=== PATIENT | female | born 1935 | race Caucasian/White ===

== ENCOUNTER 2024-02-23 10:38 | Inpatient (IN) | payer OTHER, MEDICARE, SELFPAY ==
[2024-02-23] VITALS (17 sets, daily range): BP systolic 112–137; BP diastolic 52–71; PULSE 44–59; RESP 12–30; TEMP 36.6–36.9; O2SAT 88–100; BMI 30.2
--- NOTE | 2024-02-23 10:55 | ED_ITS ---
HPI - Fall General Chief Complaint: Extremity Injury, Lower Stated Complaint: GLF Time Seen by Provider: 02/23/24 10:50 History of Present Illness HPI Narrative: Patient 88-year-old female history of hypertension on verapamil presents today with ground level fall and left hip pain. 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 She did not hit her head or lose consciousness. No chest pain or palpitations. She reports that she has not on antiplatelet or anticoagulation medication. Related Data Allergies Allergy/AdvReac Type Severity Reaction Status Date / Time No Known Drug Allergies Allergy Verified 02/23/24 11:16 Patient History Social History Smoking Status: Former smoker Exam Initial Vital Signs Initial Vital Signs: Vital Signs Pulse Rate 48 L 02/23/24 10:48 Respiratory Rate 27 H 02/23/24 10:48 Pulse Oximetry 99 02/23/24 10:48 GENERAL: Alert pleasant 88-year-old female and in no acute distress. HEENT: Head atraumatic,EOMI, pupils reactive, face symmetric, moist mucous membranes CARDIOVASCULAR: Regular rate and rhythm without murmurs, rubs or gallops. RESPIRATORY: Breath sounds equal bilaterally, no wheezes rales or rhonchi. ABDOMEN: Soft, nontender. Normoactive bowel sounds all 4 quadrants. No guarding or rebound.s EXTREMITIES: Normal range of motion, no clubbing or edema. Neurovascularly intact Left leg externally rotated and shortened distal pedal pulse intact tender with internal external rotation of hip no iliac crest pain NEUROLOGICAL: Alert and oriented x4. SKIN: Warm, dry, no laceration, no petechiae, no rashes or lesions. Course Orders Ordered: ED Orders 02/23/24 10:42 CBC Auto Diff [Complete Blood Count AUTO DIFF] Stat CMP [Comprehensive Metabolic Panel] Stat 02/23/24 10:58 XR hip w pel if done LT 2V Stat 02/23/24 12:49 CT pelvis wo con Stat 02/23/24 13:42 Consult to Physician Stat Morphine Sulfate (Morphine 2 Mg/Ml Inj) 2 mg IV Q4HR PRN PRN Reason: Pain, Moderate (4-6) Ondansetron HCl (Ondansetron 4 Mg/2 Ml Inj) 4 mg IV Q4HR PRN PRN Reason: Nausea And Vomiting Discontinued Medications Morphine Sulfate (Morphine 2 Mg/Ml Inj) 2 mg IV NOW ONE Stop: 02/23/24 11:01 Last Admin: 02/23/24 11:10 Dose: 2 mg Documented By: JOSSY Vital Signs Vital signs: Vital Signs - 8 hr 02/23/24 10:48 02/23/24 10:59 02/23/24 11:00 Temperature 98.0 F Pulse Rate 48 L 47 L 48 L Respiratory Rate 27 H 18 25 H Blood Pressure 137/67 Pulse Oximetry 99 97 100 Oxygen Delivery Method Room Air 02/23/24 11:01 02/23/24 11:01 02/23/24 11:39 Temperature Pulse Rate 48 L 46 L Respiratory Rate Blood Pressure 135/62 Pulse Oximetry 100 100 Oxygen Delivery Method 02/23/24 11:59 02/23/24 11:59 02/23/24 12:00 Temperature Pulse Rate 46 L 44 L Respiratory Rate 24 27 H Blood Pressure 132/57 L Pulse Oximetry 97 94 Oxygen Delivery Method 02/23/24 12:01 02/23/24 12:01 02/23/24 12:30 Temperature Pulse Rate 44 L 49 L Respiratory Rate 24 23 Blood Pressure 125/59 L Pulse Oximetry 94 98 Oxygen Delivery Method 02/23/24 12:31 02/23/24 12:31 02/23/24 13:00 Temperature Pulse Rate 50 L Respiratory Rate 24 Blood Pressure 116/67 126/61 Pulse Oximetry 99 Oxygen Delivery Method 02/23/24 13:00 02/23/24 13:22 02/23/24 13:22 Temperature Pulse Rate 51 L 48 L Respiratory Rate 30 H 26 H Blood Pressure 127/71 Pulse Oximetry 99 100 Oxygen Delivery Method 02/23/24 13:30 02/23/24 13:30 Temperature Pulse Rate 45 L Respiratory Rate 21 Blood Pressure 117/55 L Pulse Oximetry 95 Oxygen Delivery Method Room Air MDM - Fall Lab Data 02/23/24 10:42 02/23/24 10:42 Labs: Lab Results 02/23/24 Range/Units 10:42 WBC 7.9 (4.5-11.0) X10^3/uL RBC 5.17 (4.0-5.2) X10^6/uL Hgb 16.0 (12.0-16.0) g/dL Hct 46.5 H (36-46) % MCV 89.9 (80-100) fL MCH 31.0 (26-34) PG MCHC 34.4 (30-36) % RDW 13.2 (11.6-14.8) % Plt Count 268 (150-400) X10^3/uL Neut % (Auto) 62.5 (50-75) % Lymph % (Auto) 27.7 (25-40) % [place] % (Auto) 7.7 (3-14) % Eos % (Auto) 1.3 L (2-4) % Baso % (Auto) 0.8 (0-2) % Neut # (Auto) 5000 (1728-8240) /uL Lymph # (Auto) 2200 (1178-4552) /uL [place] # (Auto) 600 (0-900) /uL Eos # (Auto) 100 (0-450) /uL Baso # (Auto) 100 (0-100) /uL Sodium 142 (137-145) mmol/L Potassium 4.0 (3.4-5.1) mmol/L Chloride 108 H (98-107) mmol/L Carbon Dioxide 29 (22-32) mmol/L BUN 15 (7-17) mg/dL Creatinine 0.58 (0.52-1.04) mg/dL Estimated GFR > 60 (>60) mL/min BUN/Creatinine Ratio 25.9 H (6-22) Glucose 112 H (80-110) mg/dL Calcium 9.3 (8.4-10.2) mg/dL Total Bilirubin 0.8 (0.2-1.3) mg/dL AST 25 (14-36) IU/L ALT 14 (<35) IU/L Alkaline Phosphatase 70 (38-126) U/L Total Protein 7.5 (6.3-8.2) g/dL Albumin 4.3 (3.5-5.0) g/dL Globulin 3.2 (1.7-4.1) g/dL Albumin/Globulin Ratio 1.3 (1.0-2.8) Imaging Data Extremity x-ray #1: My Impression: Femoral neck fracture Radiologist's Impression: PROCEDURE: XR HIP W PEL IF DONE LT 2V INDICATIONS: fall TECHNIQUE: 2 views of the hip were acquired. COMPARISON: None. FINDINGS: Bones: Possible fracture through the left femoral neck is largely obscured by patient positioning. Pelvic ring is intact. Total right hip prosthesis in good position. Soft tissues: Barium within the right and transverse colon. No obstruction IMPRESSION: Possible left femoral neck fracture. Consider follow-up CT Retained enteric contrast in the colon Approved by: Kamran Waite M.D. on 02/23/2024 at 11:45 CT Pelvis: Radiologist's Impression: PROCEDURE: CT PEL WO CON INDICATIONS: left hip fracture TECHNIQUE: Noncontrast 3 mm axial sections acquired through the bony pelvis, with coronal and sagittal reformatting. COMPARISON: None. FINDINGS: Image quality: Excellent. Bones: Subcapital femoral neck fracture noted in the left. Total right hip prosthesis on the right. Pelvic ring intact. Incidental lower lumbar spine degenerative disc disease and arthropathy. Soft tissues: Normal appearing appendix. Retained enteric contrast in the right colon. Paredes catheter in the bladder. Multiple diverticula arise from the colon without diverticulitis. IMPRESSION: Basicervical left femoral neck fracture with angulation Chronic changes as above MDM Narrative Medical decision making narrative: Patient 88-year-old female without significant past medical history presenting today with mechanical fall. Having significant left hip pain. On exam she is externally rotated and shortened neurovascularly intact. Imaging was reviewed a radiology read x-ray as questionable femoral neck fracture. Encourage CT CT confirms femoral neck fracture Blood work has been reviewed: No significant abnormalities no leukocytosis anemia or DWAINE Patient has received doses of morphine for pain which have helped. Paredes catheter has been placed. Patient is visiting out of town for 1 of her cousins parties. She is staying at a hotel she needs draft roller picker her car. She has family nearby but has yet to called them. When asked about the retained contrast on her x-ray she had some sort of gastric surgery at [facility] and had recent studies done yesterday or earlier this week. She says it is not any sort of cancer. Dr. Murphy updated on patient's symptoms test results agrees patient to go to medicine and to keep NPO for surgery tomorrow Dr. Molina accepts patient Discharge Plan Departure Patient Disposition: Admitted As Inpatient Clinical Impression: Fracture of hip Admit Date/Time: 02/23/24 13:43 Admit Provider: Phu Molina
--- NOTE | 2024-02-23 10:58 | DI.RAD.S_ITS ---
PROCEDURE: XR HIP W PEL IF DONE LT 2V INDICATIONS: fall TECHNIQUE: 2 views of the hip were acquired. COMPARISON: None. FINDINGS: Bones: Possible fracture through the left femoral neck is largely obscured by patient positioning. Pelvic ring is intact. Total right hip prosthesis in good position. Soft tissues: Barium within the right and transverse colon. No obstruction IMPRESSION: Possible left femoral neck fracture. Consider follow-up CT Retained enteric contrast in the colon Approved by: Kamran Waite M.D. on 02/23/2024 at 11:45
--- NOTE | 2024-02-23 11:07 | PC.NURSE ---
Pt states she was at a restraunt when she tripped and fell. Pt reports left hip pain that is worse on movement. Pt reports no pain w/ no movement; w/ movement pt reports a pain of 6
--- NOTE | 2024-02-23 11:08 | PC.NURSE ---
No bruising to hip noted.
[2024-02-23] MEDS: MORPHINE 2 MG/ML INJ IV (11:10)
[2024-02-23 11:13] LABS: Add Manual Diff / Slide Review NO; Basophils Absolute Auto 100 /uL (0-100); Basophils Percent Auto 0.8 % (0-2); Eosinophils Absolute Auto 100 /uL (0-450); Eosinophils Percent Auto 1.3 % (2-4); Hematocrit 46.5 % (36-46); Lymphocytes Absolute Auto 2200 /uL (1100-4500); Lymphocytes Percent Auto 27.7 % (25-40); Mean Corpuscular HGB Conc 34.4 % (30-36); Mean Corpuscular Volume 89.9 fL (80-100); Monocytes Absolute Auto 600 /uL (0-900); Monocytes Percent Auto 7.7 % (3-14); Neutrophils Absolute Auto 5000 /uL (1500-7000); Neutrophils Percent Auto 62.5 % (50-75); Platelet Count 268 X10^3/uL (150-400); Red Blood Cell Count 5.17 X10^6/uL (4.0-5.2); Red Cell Distribution Width 13.2 % (11.6-14.8); White Blood Cell Count 7.9 X10^3/uL (4.5-11.0)
[2024-02-23 11:19] LABS: Alanine Aminotransferase 14 IU/L (<35); Albumin 4.3 g/dL (3.5-5.0); Albumin Globulin Ratio 1.3 (1.0-2.8); Alkaline Phosphatase 70 U/L (38-126); Aspartate Aminotransferase 25 IU/L (14-36); BUN Creatinine Ratio 25.9 (6-22); Bilirubin Total 0.8 mg/dL (0.2-1.3); Blood Urea Nitrogen 15 mg/dL (7-17); Calcium 9.3 mg/dL (8.4-10.2); Carbon Dioxide 29 mmol/L (22-32); Chloride 108 mmol/L (98-107); Estimated Glomerular Filt Rate > 60 mL/min (>60); Globulin 3.2 g/dL (1.7-4.1); Glucose 112 mg/dL (80-110); HEMOLYSIS < 15 (0-50); Sodium 142 mmol/L (137-145); Total Protein 7.5 g/dL (6.3-8.2)
--- NOTE | 2024-02-23 12:49 | DI.CT.S_ITS ---
PROCEDURE: CT PEL WO CON INDICATIONS: left hip fracture TECHNIQUE: Noncontrast 3 mm axial sections acquired through the bony pelvis, with coronal and sagittal reformatting. COMPARISON: None. FINDINGS: Image quality: Excellent. Bones: Subcapital femoral neck fracture noted in the left. Total right hip prosthesis on the right. Pelvic ring intact. Incidental lower lumbar spine degenerative disc disease and arthropathy. Soft tissues: Normal appearing appendix. Retained enteric contrast in the right colon. Paredes catheter in the bladder. Multiple diverticula arise from the colon without diverticulitis. IMPRESSION: Basicervical left femoral neck fracture with angulation Chronic changes as above Approved by: Kamran Waite M.D. on 02/23/2024 at 13:02
--- NOTE | 2024-02-23 14:10 | PM.HP.1 ---
History of Present Illness History of Present Illness Date Patient Seen: 02/23/24 Chief complaint: GLF Narrative: The patient is an 88-year-old female with history of hypertension who presented with left hip patent following a ground level fall. The patient was from out of town and is visiting from [facility]. She slipped on a floor landing resulting in our injury. She denies any other injuries. CT scan confirmed a hip fracture, Orthopedics was consulted and we will do an operative repair on February 23. She denies other injuries during her fall. There is no syncopal component. She is in town for a surprise birthday alliance party for her family member. The patient has enjoyed good health other than hypertension for which he takes 1 blood pressure pill. She is full resuscitation, confirmed today. She denies any chest pain history either at rest or with exertion. She also denies any exertional dyspnea, leg edema or orthopnea. [facility] Social History household members: none Smoking Status: Former smoker alcohol intake: current Meds Home Medications and Allergies Home Medications Medication Instructions Recorded Confirmed Type verapamil 240 mg tablet,extended 240 mg PO DAILY 02/23/24 02/23/24 History release Allergies Allergy/AdvReac Type Severity Reaction Status Date / Time No Known Drug Allergies Allergy Verified 02/23/24 11:16 Review of Systems Review of Systems Narrative: All else reviewed and otherwise unremarkable except as noted in the history and physical. Exam Vital Signs (past 8 hours): - 02/23/24 10:48 02/23/24 10:59 02/23/24 11:00 Temperature 98.0 F Pulse Rate 48 L 47 L 48 L Respiratory Rate 27 H 18 25 H Blood Pressure 137/67 Pulse Oximetry 99 97 100 Oxygen Delivery Method Room Air 02/23/24 11:01 02/23/24 11:01 02/23/24 11:39 Temperature Pulse Rate 48 L 46 L Respiratory Rate Blood Pressure 135/62 Pulse Oximetry 100 100 Oxygen Delivery Method 02/23/24 11:59 02/23/24 11:59 02/23/24 12:00 Temperature Pulse Rate 46 L 44 L Respiratory Rate 24 27 H Blood Pressure 132/57 L Pulse Oximetry 97 94 Oxygen Delivery Method 02/23/24 12:01 02/23/24 12:01 02/23/24 12:30 Temperature Pulse Rate 44 L 49 L Respiratory Rate 24 23 Blood Pressure 125/59 L Pulse Oximetry 94 98 Oxygen Delivery Method 02/23/24 12:31 02/23/24 12:31 02/23/24 13:00 Temperature Pulse Rate 50 L Respiratory Rate 24 Blood Pressure 116/67 126/61 Pulse Oximetry 99 Oxygen Delivery Method 02/23/24 13:00 02/23/24 13:22 02/23/24 13:22 Temperature Pulse Rate 51 L 48 L Respiratory Rate 30 H 26 H Blood Pressure 127/71 Pulse Oximetry 99 100 Oxygen Delivery Method 02/23/24 13:30 02/23/24 13:30 02/23/24 13:45 Temperature Pulse Rate 45 L 46 L Respiratory Rate 21 14 Blood Pressure 117/55 L Pulse Oximetry 95 88 L Oxygen Delivery Method Room Air Room Air Oxygen Delivery Method Room Air Narrative Exam Narrative: NAD, alert and oriented, fluent speech, calm. Normocephalic skull, EOMI, anicteric sclera, symmetric pupils. Oropharynx unremarkable, no droop. Neck supple, midline trachea, no adenopathy. Lungs clear, normal rate and effort. Heart regular, no murmur gallop or rub. Abdomen is soft, non distended and non tender. Extremities are free of edema. Skin is free of rash or lesions. Joints are not swollen or deformed. Judgment appears to be normal. The left lower extremity is externally rotated. Good peripheral pulses in both feet. Objective Imaging CT Hip: Radiologist's impression: Basicervical left femoral neck fracture with angulation Chronic changes as above Labs 02/23/24 10:42 02/23/24 10:42 Labs: Laboratory Results - last 24 hr 02/23/24 10:42 WBC 7.9 RBC 5.17 Hgb 16.0 Hct 46.5 H MCV 89.9 MCH 31.0 MCHC 34.4 RDW 13.2 Plt Count 268 Neut % (Auto) 62.5 Lymph % (Auto) 27.7 [place] % (Auto) 7.7 Eos % (Auto) 1.3 L Baso % (Auto) 0.8 Neut # (Auto) 5000 Lymph # (Auto) 2200 [place] # (Auto) 600 Eos # (Auto) 100 Baso # (Auto) 100 Sodium 142 Potassium 4.0 Chloride 108 H Carbon Dioxide 29 BUN 15 Creatinine 0.58 Estimated GFR > 60 BUN/Creatinine Ratio 25.9 H Glucose 112 H Calcium 9.3 Total Bilirubin 0.8 AST 25 ALT 14 Alkaline Phosphatase 70 Total Protein 7.5 Albumin 4.3 Globulin 3.2 Albumin/Globulin Ratio 1.3 Assessment & Plan Assessment & Plan narrative: 1. Left femoral neck fracture, present on admission and active. 2. Ground level fall, mechanical. Present on admission and active. 3. Chronic essential hypertension, present on admission and stable. Plan: -continue usual blood pressure medications. -pain control. -bed rest. -DVT prophylaxis. -orthopedics consultation for operative repair of hip fracture. Time Spent With Patient Time with patient: 30 to 49 minutes with 50% spent counseling/coordinating care Quality MIPS - Admit I confirm the patient?s Advance Care Plan is present, Code status is documented, Surrogate decision maker is in patient?s record [If Yes, STOP here]: Yes MIPS - Meds 'Current medications' to include all prescriptions, [id number] products, herbals, cannabis/cannabidiol products, and vitamin/mineral/dietary (nutritional) supplements. I have utilized all available resources to obtain, update, or review the patient?s current medications. [If Yes, STOP here]: Yes
--- NOTE | 2024-02-23 14:29 | P.CONS_ITS ---
History of Present Illness Consult details Date Patient Seen: 02/23/24 Time Patient Seen: 17:28 Chief complaint: GLF Reason for consult: left hip fracture Requesting provider: Leia Duarte Narrative: 88 yo F visiting from [place] fell while out at breakfast onto L side and was unable to ambulate. brought to and found to have communited displaced left femoral neck fracture. she was indicated for inpt admission to the medicine service and optimization for orthopedic surgery. she does not take blood thinners, and have a hx of a right FRANCHESKA. 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 She lives independently and is generally in good health. She takes 1 standard medication for hypertension which is verapamil. She did recently have a stomach surgery at [facility] and completed the postoperative 1 month liquid diet recently. She just had her 3rd and final follow up at [facility] yesterday where she had a barium swallow which you can still see evidence of on the ER x-rays today. At that point she was cleared to resume her regular diet. She does not have any history of blood clots and takes no blood thinners she has a history of a previous right total hip replacement also performed at [facility]. Her PCP works in [place] [address] after moving their from [place] and she has been seeing him in [address] for several years with the patient continues to live in [place]. The patient was in the area today for a cousin's surprise 82th birthday alliance party. The patient was at a restaurant in [facility] being guided to a seat for breakfast when she tripped moving between the rooms and fell onto her left hip. She denies any loss of consciousness or other injury. There were some relay tester helper at breakfast that were able to get her up. She was unable to bear weight on her left leg had hip pain and EMS was called She endorses pain in her left hip. She denies any loss of consciousness. She does state on the right side she has some nerve pain pins and needles that occurred coinciding with her right total hip replacement which was done for osteoarthritis Meds Home Medications and Allergies Home Medications Medication Instructions Recorded Confirmed Type verapamil 240 mg tablet,extended 240 mg PO DAILY 02/23/24 02/23/24 History release Allergies Allergy/AdvReac Type Severity Reaction Status Date / Time No Known Drug Allergies Allergy Verified 02/23/24 11:16 Review of Systems Review of Systems Narrative: Endorses left hip pain. Has some numbness and tingling that is chronic in her left lower extremity. ROS: Yes All systems reviewed with the patient and are negative except as otherwise documented Exam Vital Signs (past 8 hours): - 02/23/24 10:48 02/23/24 10:59 02/23/24 11:00 Temperature 98.0 F Pulse Rate 48 L 47 L 48 L Respiratory Rate 27 H 18 25 H Blood Pressure 137/67 Pulse Oximetry 99 97 100 Oxygen Delivery Method Room Air 02/23/24 11:01 02/23/24 11:01 02/23/24 11:39 Temperature Pulse Rate 48 L 46 L Respiratory Rate Blood Pressure 135/62 Pulse Oximetry 100 100 Oxygen Delivery Method 02/23/24 11:59 02/23/24 11:59 02/23/24 12:00 Temperature Pulse Rate 46 L 44 L Respiratory Rate 24 27 H Blood Pressure 132/57 L Pulse Oximetry 97 94 Oxygen Delivery Method 02/23/24 12:01 02/23/24 12:01 02/23/24 12:30 Temperature Pulse Rate 44 L 49 L Respiratory Rate 24 23 Blood Pressure 125/59 L Pulse Oximetry 94 98 Oxygen Delivery Method 02/23/24 12:31 02/23/24 12:31 02/23/24 13:00 Temperature Pulse Rate 50 L Respiratory Rate 24 Blood Pressure 116/67 126/61 Pulse Oximetry 99 Oxygen Delivery Method 02/23/24 13:00 02/23/24 13:22 02/23/24 13:22 Temperature Pulse Rate 51 L 48 L Respiratory Rate 30 H 26 H Blood Pressure 127/71 Pulse Oximetry 99 100 Oxygen Delivery Method 02/23/24 13:30 02/23/24 13:30 02/23/24 13:45 Temperature Pulse Rate 45 L 46 L Respiratory Rate 21 14 Blood Pressure 117/55 L Pulse Oximetry 95 88 L Oxygen Delivery Method Room Air Room Air 02/23/24 14:00 02/23/24 14:00 Temperature 98.5 F Pulse Rate 48 L Respiratory Rate 12 Blood Pressure 112/56 L Pulse Oximetry 100 Oxygen Delivery Method Oxygen Delivery Method Room Air Narrative Exam Narrative: Alert and oriented female in no acute distress very articulate. HEENT exam normocephalic atraumatic. Moving bilateral upper extremities without limitation. Respiratory clear to auscultation bilaterally. Heart regular rhythm slightly bradycardic Lying in bed. Paredes in place. Yellow urine. Right lower extremity moves normally. Demonstrates dorsiflexion plantar flexion. There is some numbness and tingling superficial peroneal nerve distribution. EHL intact. Palpable pulses. Normal alignment Left lower extremity demonstrates a shortened and external rotation deformity of the lower extremity consistent with the known displaced femoral neck fracture. Patient is able to wiggle her toes and demonstrate dorsiflexion of the ankle. Palpable dorsalis pedis pulse. Calf is soft. Knee is benign. Tenderness to palpation around the left hip. Additional motor exam of the left lower extremity deferred due to known fracture. Objective Imaging left hip xr: My impression: ap and Left lateral hip with shortened appearance Left hip, consistent with femoral neck neck, Right FRANCHESKA. bowel contrast opacity pelvis CT: My impression: comminuted left femoral neck fracture Labs 02/23/24 10:42 02/23/24 10:42 Labs: Laboratory Results - last 24 hr 02/23/24 10:42 WBC 7.9 RBC 5.17 Hgb 16.0 Hct 46.5 H MCV 89.9 MCH 31.0 MCHC 34.4 RDW 13.2 Plt Count 268 Neut % (Auto) 62.5 Lymph % (Auto) 27.7 [place] % (Auto) 7.7 Eos % (Auto) 1.3 L Baso % (Auto) 0.8 Neut # (Auto) 5000 Lymph # (Auto) 2200 [place] # (Auto) 600 Eos # (Auto) 100 Baso # (Auto) 100 Sodium 142 Potassium 4.0 Chloride 108 H Carbon Dioxide 29 BUN 15 Creatinine 0.58 Estimated GFR > 60 BUN/Creatinine Ratio 25.9 H Glucose 112 H Calcium 9.3 Total Bilirubin 0.8 AST 25 ALT 14 Alkaline Phosphatase 70 Total Protein 7.5 Albumin 4.3 Globulin 3.2 Albumin/Globulin Ratio 1.3 PFSH Social History marital status: occupational status: employed 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 Tobacco & Substance Use Smoking Status: Former smoker Additional Social History additional social history: Lives independently in [place] Assessment & Plan Assessment and plan (1) Fracture of femoral neck, left: Qualifiers: Encounter type: initial encounter Fracture type: closed Qualified Code(s): S72.002A - Fracture of unspecified part of neck of left femur, initial encounter for closed fracture Status: Acute (2) Osteoporotic hip fracture: Qualifiers: Encounter type: initial encounter Laterality: left Qualified Code(s): M80.052A - Age-related osteoporosis with current pathological fracture, left femur, initial encounter for fracture Status: Acute Plan left osteoporotic hip fracture from GLF. -displaced comminuted femoral neck fracture. These fractures have a poor healing potential, therefore the recommendation is hemiarthroplasty which will allow immediate WB. Fixation or replacement for hip fractures as appropriate at an early interval improves morbidity and mortality compared to non operative treatment. We will plan plan for tomorrow AM OR. NPO MN. The patient denies prodrome pain. Lives independently. And has been indicated for a hemiarthroplasty for her displaced left femoral neck fracture. The risks and benefits of the procedure have been discussed with the patient and given the opportunity to ask questions. The risks of surgery include but are not limited to infection, dislocation, blood loss, persistence of pain, damage to nerves and blood vessels, posttraumatic arthritis, DVT, PE, cardiopulmonary complications and . The patient expressed a thorough understanding of the risks and benefits of surgery and has elected to proceed. Consent was signed today. We discussed the alternatives to surgery his non operative treatment which would be bedridden status and is not recommended due to prolonged dysfunction and high morbidity and mortality. We discussed recovery after hip arthroplasty for fracture can be slower and more difficult than elective total hip procedures. She will work with physical therapy after surgery and may require assistance with placement. She will be on posterior hip precautions x6 weeks after the procedure. She will be able to resume her regular diet. We will initiate Lovenox DVT prophylaxis after surgery while in the hospital. If she mobilizes well can be discharged with aspirin 80 mg b.i.d. If she has difficulty with mobilization then would continue the Lovenox prescription through 35 days postop. Preoperatively she is on heparin subcutaneous. We will hold the morning dose prior to surgery. We discussed risks of blood loss with surgery. We will use tranexamic acid to limit blood loss. If she has symptomatic blood loss anemia postoperative, we also discussed possibility of a transfusion, but this is not often required. High-level medical decision making. Decision for major orthopedic surgery and inpatient hospitalization. Patient was social factors that will impact discharge. Lives alone out of town. We will require care management assistance. X-rays and CT scan reviewed. Time Spent With Patient Time with patient: 50 to 69 minutes with 50% spent counseling/coordinating care
[2024-02-23] MEDS: SODIUM CHLORIDE 0.9% 1,000 ML 75 ML IV (15:15)
[2024-02-23] MEDS: OXYCODONE IR 5 MG TABLET PO (17:26)
[2024-02-23] MEDS: DOCUSATE 100 MG CAPSULE PO (20:30)
[2024-02-23] MEDS: HEPARIN 5,000 UNIT/ML VIAL 5000 UNIT SUBCUT (23:20)
[2024-02-24] VITALS (15 sets, daily range): BP systolic 105–129; BP diastolic 47–64; PULSE 55–75; RESP 14–18; TEMP 36.1–36.9; O2SAT 92–98; BMI 30.2
[2024-02-24] MEDS: SODIUM CHLORIDE 0.9% 1,000 ML 75 ML IV (04:08)
[2024-02-24 05:11] LABS: Add Manual Diff / Slide Review NO; Basophils Absolute Auto 0 /uL (0-100); Basophils Percent Auto 0.6 % (0-2); Eosinophils Absolute Auto 100 /uL (0-450); Eosinophils Percent Auto 2.2 % (2-4); Hematocrit 39.1 % (36-46); Hemoglobin 13.4 g/dL (12.0-16.0); Lymphocytes Absolute Auto 1100 /uL (1100-4500); Lymphocytes Percent Auto 17.2 % (25-40); Mean Corpuscular HGB Conc 34.1 % (30-36); Mean Corpuscular Hemoglobin 30.5 PG (26-34); Mean Corpuscular Volume 89.3 fL (80-100); Monocytes Absolute Auto 600 /uL (0-900); Monocytes Percent Auto 10.1 % (3-14); Neutrophils Absolute Auto 4500 /uL (1500-7000); Neutrophils Percent Auto 69.9 % (50-75); Platelet Count 174 X10^3/uL (150-400); Red Blood Cell Count 4.38 X10^6/uL (4.0-5.2); Red Cell Distribution Width 12.7 % (11.6-14.8); White Blood Cell Count 6.4 X10^3/uL (4.5-11.0)
[2024-02-24 05:30] LABS: BUN Creatinine Ratio 27.3 (6-22); Blood Urea Nitrogen 12 mg/dL (7-17); Carbon Dioxide 26 mmol/L (22-32); Chloride 110 mmol/L (98-107); Estimated Glomerular Filt Rate > 60 mL/min (>60); Glucose 105 mg/dL (80-110); HEMOLYSIS < 15 (0-50); Potassium 3.5 mmol/L (3.4-5.1); Sodium 136 mmol/L (137-145)
--- NOTE | 2024-02-24 07:08 | P.PN_ITS ---
Subjective Subjective Interval history: Doing well after surgery, minimal left hip pain. No chest pain or dyspnea. Exam Vital Signs (past 8 hours): - 02/24/24 04:09 Temperature 97.5 F L Pulse Rate 55 L Respiratory Rate 16 Blood Pressure 105/55 L Pulse Oximetry 95 Oxygen Flow Rate 0 Oxygen Delivery Method Room Air Oxygen Flow Rate 0 Narrative Exam Narrative: NAD, alert and oriented. Fluent speech. Lungs are clear, normal rate and effort. Heart is regular, no murmur gallop or rub. Abdomen is soft, non distended. Extremities are free of edema. Good symmetric pedal pulses. Objective Labs 02/24/24 05:02 02/24/24 05:02 Labs: Laboratory Results - last 24 hr 02/23/24 02/24/24 10:42 05:02 WBC 7.9 6.4 RBC 5.17 4.38 Hgb 16.0 13.4 Hct 46.5 H 39.1 MCV 89.9 89.3 MCH 31.0 30.5 MCHC 34.4 34.1 RDW 13.2 12.7 Plt Count 268 174 Neut % (Auto) 62.5 69.9 Lymph % (Auto) 27.7 17.2 L [place] % (Auto) 7.7 10.1 Eos % (Auto) 1.3 L 2.2 Baso % (Auto) 0.8 0.6 Neut # (Auto) 5000 4500 Lymph # (Auto) 2200 1100 [place] # (Auto) 600 600 Eos # (Auto) 100 100 Baso # (Auto) 100 0 Sodium 142 136 L Potassium 4.0 3.5 Chloride 108 H 110 H Carbon Dioxide 29 26 BUN 15 12 Creatinine 0.58 0.44 L Estimated GFR > 60 > 60 BUN/Creatinine Ratio 25.9 H 27.3 H Glucose 112 H 105 Calcium 9.3 8.0 L Total Bilirubin 0.8 AST 25 ALT 14 Alkaline Phosphatase 70 Total Protein 7.5 Albumin 4.3 Globulin 3.2 Albumin/Globulin Ratio 1.3 [facility] Social History marital status: household members: none occupational status: employed 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 Smoking Status: Former smoker alcohol intake: current additional social history: Lives independently in [place] Assessment & Plan Assessment & Plan narrative: 1. Left femoral neck fracture status postoperative repair on February 23, present on admission and active. 2. Ground level fall, mechanical. Present on admission and active. 3. Chronic essential hypertension, present on admission and stable. Plan: -continue usual blood pressure medications. -pain control. -advance activity -DVT prophylaxis. Full code. She lives alone in [place]. She was recently . Quality VTE Deep Vein Thrombosis/Pulmonary Embolism Present on Admission: No
--- NOTE | 2024-02-24 07:52 | DI.RAD.S_ITS ---
PROCEDURE: XR HIP W PEL IF DONE LT 2V INDICATIONS: intraop TECHNIQUE: Single intraoperative image of the lower pelvis was obtained COMPARISON: [facility], CR, XR HIP W PEL IF DONE LT 2V, 02/23/2024, 11:24. FINDINGS: Single intraoperative image shows right hip revision and left hip arthroplasty in progress. IMPRESSION: 1. Total left hip and right hip revision arthroplasty in progress Approved by: Kamran Waite M.D. on 02/24/2024 at 10:11
--- NOTE | 2024-02-24 08:01 | PM.PREOP ---
Pre-operative Note Interval Note History & Physical reviewed/Exam performed by Physician: Yes Changes to H&P: No
--- NOTE | 2024-02-24 08:02 | PM.OP.1 ---
Operative Date/Time/Diagnoses Date of procedure: 02/24/24 Time of procedure: 09:00 Pre-op diagnosis: Left osteoporotic hip fracture, left femoral neck fracture Post-op diagnosis: same Procedure & Clinicians Procedure: Left hip hemiarthroplasty, cemented cpt 55332 Same procedure as scheduled: Yes Indications: The patient is an pleasant independent living 88-year-old female visiting from [place] that had a ground level fall in a restaurant in [facility] and sustained a displaced left femoral neck fracture. She was indicated for operative fixation with a cemented hemiarthroplasty of her left hip to facilitate early ambulation and mobilization and reduce the risks of prolonged immobility. The risks and benefits of the procedure have been discussed with the patient and given the opportunity to ask questions. The risks of surgery include but are not limited to infection, fracture dislocation,, persistence of pain, damage to nerves and blood vessels, posttraumatic arthritis, DVT, PE, cardiopulmonary complications and . The patient expressed a thorough understanding of the risks and benefits of surgery and has elected to proceed. Consent was signed. Surgeon: Geno Bowman Transitional Studies Instructor: Juan J Urrutia Anesthesia Type: General, Spinal and Local Operative Notes Findings: Displaced comminuted left femoral neck fracture Closure Type: primary Specimen(s): none sent Prosthetic devices, grafts, tissues, transplants, or devices: [employer]ullen [employer] Synergy stem, cemented size 11 Tandem unipolar head size 45 Neck +4 9 mm distal post centralizer Small bone plug Estimated Blood Loss (mL): 200 Blood products transfused: none Tourniquet time (min): 0 Procedure in detail: media center assistant statement During the operation, the services of a physician surgical instruments inspector were medically indicated and necessary to provide the exposure of the operative site for the surgical procedure and to maintain the limb in a proper position to carry out the operation safely and efficiently. Without a qualified actuarial assistant being present this would extended the operative procedure and made the procedure technically more difficult to perform. Hemiarthroplasty for left femoral neck fracture CPT code 30611. Patient was seen in the preoperative area the site of surgery was marked and informed consent confirmed. The patient was brought back to the operating room by the anesthesia team. Patient was positioned supine on the operative table. General anesthetic was administered. Patient was then moved into the lateral position. The hip industrial roof plumber positioner pads were then placed. A well-padded axillary roll was placed and the arms were appropriately positioned. The affected left lower extremity was prepped and draped from the ankle to the iliac crest with ChloraPrep in the standard fashion sterile drapes were placed. Formal time-out procedure was performed confirming the patient's side and site of surgery, presence of informed consent, administration of appropriate preoperative antibiotics. The left Hip was approached through a standard posterior approach. Dissection was carried down through the skin and subcutaneous tissues sharply through the skin and then with the Bovie through the subcutaneous tissues. The fascia ehsan was exposed and opened. Fascia was opened using the Bovie and the gluteus gil was spread with finger retraction. The Charnley retractor was placed. The inflamed bursa was resected. The piriformis was then identified. A Cobra retractor was placed under the gluteus medius to help expose the external rotators. The piriformis and short external rotators were tagged with a 2 Ethibond and divided of the trochanter. These were then retracted posteriorly to protect sciatic nerve. The femur was then flexed and internally rotated to present the femoral neck and the fracture. A corkscrew and a Ryan were used to remove the femoral head from the acetabulum. This was measured to fit a 45 mm head. Next the femur was presented. A clean-up neck cut was made in a minimal fashion. The trial head size was trialed in the acetabulum. Attention was then turned to the femur. The canal was opened with a box cutting osteotome. This followed by the canal finer and a lateralizing Reamer. An additional curette was used to remove additional bone. The tapered reamers were then used up to a size 11. Then broaching was sequentially done up to a size 11. Trial components were placed. The patient was stable in the position of sleep, squatting and could be put through a range of motion with 70? of internal rotation without dislocation. This was felt to be appropriate. An intraop a AP pelvis x-ray was obtained to assess component position. Final components were then selected. The final stem was a size 11. The Femoral canal was prepared . The distal small restrictor was placed approximately 1 cm distal to the end of the planned implant. The bone was meticulously cleaned with pulse lavage. Canal was then packed with epinephrine soaked gauze. Two packages of cement were mixed and carefully pressurized into the femoral canal. The femoral component was then placed without difficulty. This was held in place until the cement hardened. The repeat trial reduction initially with a standard neck, 0 was trialed this was felt to be a little loose so a +4 was used which then demonstrated good range of motion and stability. The final head and neck were then carefully placed. The wound was irrigated. The capsule and muscular flap was repaired with the 2. FiberWire. Next the short external rotators were repaired to the greater trochanter through drill holes in the greater trochanter using the 2.5 drill and a Hewson suture Passer. These were tied with the leg in abduction. The wound was then irrigated again. Local anesthetic was administered. The fascia ehsan was closed with 0 Vicryl and the subcutaneous layer was closed with 2-0 Vicryl and the skin with Stratafix Monocryl and Dermabond. An Aquacel dressing was placed. A pillow was placed between the legs for protection. The drapes removed and the patient was taken to the recovery room in good condition. There no immediate complications from this procedure. All counts were correct. Postoperative AP pelvis x-ray was obtained in the PACU showed appropriate alignment of the cemented hip hemiarthroplasty with no evidence of fracture. Complications: none Post-operative Condition: stable Disposition: PACU Plan for aftercare: Weightbear as tolerated. Posterior hip precautions x6 weeks. Patient will work physical therapy. Social work, care management will be involved with postoperative discharge planning for this patient. We will utilize Lovenox 40 mg subcutaneous daily for postoperative DVT prophylaxis. However if the patient was mobilizing well with a walker, then can be discontinued from the Lovenox and placed on 81 mg aspirin b.i.d. at the time of discharge. Patient may shower with the Aquacel dressing in place. This can be removed around 2 weeks postoperatively. Incision was closed with absorbable sutures and Dermabond. She can follow up locally or once she gets back to her home town at 6 weeks for repeat x-ray.
[2024-02-24] MEDS: LACTATED RINGERS 1,000 ML 42 ML IV ×2 (08:19→11:05)
[2024-02-24] MEDS: CEFAZOLIN 2 GM/100 ML PREMIX 100 ML IV ×2 (09:10→16:35)
[2024-02-24] MEDS: TRANEXAMIC ACID 1,000 MG VIAL 1000 MG INJ ×2 (09:12→11:02)
[2024-02-24] MEDS: ACETAMINOPHEN IV 1,000 MG/100 ML VIAL 400 MG IV (09:38)
--- NOTE | 2024-02-24 09:38 | SUR.OPER ---
Lateral on padded OR bed. Gel axillary roll. Arms secured on padded armboard with pillow supporting top arm. Padded hip positioner braces x4 - anterior and posterior chest and pelvis. Additional gel pad used anterior pelvis. Gel pad under bottom leg from knee to foot and secured with tape over sheet.
[2024-02-24] MEDS: BUPIVACAINE 0.25% (PF) 60 ML, EPINEPHrine 0.3 MG INJ (09:47)
--- NOTE | 2024-02-24 11:47 | DI.RAD.S_ITS ---
PROCEDURE: XR PELVIS 1-2V INDICATIONS: postop TECHNIQUE: Intra-operative view of the pelvis and hip acquired. COMPARISON: [facility], CR, XR HIP W PEL IF DONE LT 2V, 02/24/2024, 10:07. FINDINGS: Bones: Bipolar left hip prosthesis in good position. Prior right hip arthroplasty in place Soft tissues: Overlying surgical retractors are present, along with other intraoperative changes. IMPRESSION: Well-positioned left hip arthroplasty. No complication. Approved by: Kamran Waite M.D. on 02/24/2024 at 11:26
--- NOTE | 2024-02-24 12:23 | PC.NURSE ---
Pt returned from PACU at 1215, drowsy but arousable, oriented x3, VSS on 3L NC. NO c/o pain, dressing to L hip c/d/i, strong pedal pulse. Pt reoriented to room and call light. Bed in low position, call light within reach, SCDs on, bed alarm activated.
[2024-02-24] MEDS: LACTATED RINGERS 1,000 ML 100 ML IV ×2 (12:36→16:35)
--- NOTE | 2024-02-24 13:32 | PT-IP ANOTE ---
Pt up to floor after hip replacement and she is sleeping soundly and woozy per nursing. Will initiate evaluation efforts next date.
--- NOTE | 2024-02-24 14:47 | CM.DANOTE ---
Addendum entered by JOYCE Kothari 02/24/24 15:19: ADD: According to RN; cousin from [place] called, Savi Piedra [phone] saying that local friend Fariba Piedra [phone] will not be able to physically care for patient upon discharge, however, it's possible that family member Colt Piedra [phone] who lives on [address], can help assist if patient can discharge to friends house vs hotel (?) LUIS A Original Note: Initial DCP Assessment Note Pt is a 88 yo female, visiting from [place], now POD 0 from hip repair by Dr Bowman. Per record review, patient visiting from [place], fell and had subsequent hip fx requiring repair. PCP: Unknown Payer: Jsoeph Gomes/ [employer] Attempted bedside assessment and RN reports patient is too lethargic to participate in a meaningful way. PT also on hold today. 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 If patient has support locally, she may be a candidate for discharge home w/outpatient follow up. Therapies pending. CM team will plan to follow closely for assessment of need and coordination of discharge plan. JOYCE Arechiga Discharge Planning/Care Management CM Discharge Assessment Start: 02/24/24 14:41 Freq: Status: Active Protocol: Document 02/24/24 14:42 LUIS A (Rec: 02/24/24 14:46 LUIS A [id number]) Discharge Planning Assessment Assigned Roadway Technician JOYCE Quijano DPOA/Assigned Designee Name No one listed Advance Directives? Yes Advance Directives on File No History Provided By Medical Record Prior Living Arrangements House Household Members none Type of transporation used prior to Drives own vehicle admit Independent with ADL's Yes Is patient alert and oriented? Yes Comment TBD Transportation Arrangement TBD Additional Comment TBD
[2024-02-24] MEDS: ACETAMINOPHEN 325 MG TABLET 650 MG PO ×2 (15:29→21:05)
[2024-02-24] MEDS: DOCUSATE 100 MG CAPSULE PO (20:39)
[2024-02-24] MEDS: SODIUM CHLORIDE 0.9% FLUSH 10 ML IV (20:39)
--- NOTE | 2024-02-24 22:54 | PC.NURSE ---
Patient is alert and oriented but seems anxious especially when gotten up for activity. Breath sounds CTA but remains on oxygen at 1L/min as tried on RA but desats to upper 80's when falling asleep; is on continuous oximetry. Did get SOB when up to ambulate. HRR. Denied nausea. BT present and is passing flatus. Indwelling catheter is patent; urine is clear, yellow. Is able to move herself in bed. Gotten out of bed to ambulate and was able to walk from bed to just outside room door and back to bed. Did report chronic weakness in right LE and tingling in right foot as well as the acute weakness in left LE, but did well with walking apart from anxiety. Aquacel dressing to left hip is CDI. Wearing bilateral calf SCD's. Has soreness in left hip and was medicated with Tylenol and states it is fine when lying still and declined any stronger pain medication. CMS is intact in left LE and able to lift leg several inches off bed. Fall risk score is high and bed alarm is activated.
[2024-02-25] VITALS (7 sets, daily range): BP systolic 74–130; BP diastolic 38–79; PULSE 66–95; RESP 16–18; TEMP 37.1–37.2; O2SAT 94–95
[2024-02-25] MEDS: CEFAZOLIN 2 GM/100 ML PREMIX 100 ML IV (00:48)
[2024-02-25] MEDS: LACTATED RINGERS 1,000 ML 100 ML IV (03:18)
[2024-02-25 05:37] LABS: Add Manual Diff / Slide Review NO; Basophils Absolute Auto 0 /uL (0-100); Basophils Percent Auto 0.4 % (0-2); Eosinophils Absolute Auto 0 /uL (0-450); Eosinophils Percent Auto 0.1 % (2-4); Hematocrit 33.6 % (36-46); Hemoglobin 11.6 g/dL (12.0-16.0); Lymphocytes Absolute Auto 900 /uL (1100-4500); Lymphocytes Percent Auto 10.9 % (25-40); Mean Corpuscular HGB Conc 34.4 % (30-36); Mean Corpuscular Hemoglobin 30.6 PG (26-34); Mean Corpuscular Volume 89.1 fL (80-100); Monocytes Absolute Auto 900 /uL (0-900); Monocytes Percent Auto 10.8 % (3-14); Neutrophils Absolute Auto 6200 /uL (1500-7000); Neutrophils Percent Auto 77.8 % (50-75); Platelet Count 154 X10^3/uL (150-400); Red Blood Cell Count 3.78 X10^6/uL (4.0-5.2); Red Cell Distribution Width 12.5 % (11.6-14.8); White Blood Cell Count 7.9 X10^3/uL (4.5-11.0)
[2024-02-25 05:43] LABS: BUN Creatinine Ratio 20.5 (6-22); Blood Urea Nitrogen 9 mg/dL (7-17); Calcium 8.2 mg/dL (8.4-10.2); Carbon Dioxide 28 mmol/L (22-32); Chloride 108 mmol/L (98-107); Estimated Glomerular Filt Rate > 60 mL/min (>60); Glucose 114 mg/dL (80-110); HEMOLYSIS < 15 (0-50); Potassium 3.7 mmol/L (3.4-5.1); Sodium 137 mmol/L (137-145)
--- NOTE | 2024-02-25 07:20 | PM.PNPO.1 ---
Subjective Subjective Date Patient Seen: 02/25/24 Time Patient Seen: 07:20 Interval history: Pt resting comfortably in bed. C/o pain in left leg when trying to move it. Prior to fall, she was relatively active and healthy and ambulated independently. Per CM notes, placement pending coordination between family/friends in area vs closer to pts home in [place]. Exam Vital Signs (past 8 hours): Fraction of Inspired Oxygen 32 SaO2/FiO2 Ratio 293 Oxygen Delivery Method Nasal Cannula Oxygen Flow Rate 1 Narrative Exam Narrative: 4/5 strength in hip flexors, quadriceps, hamstrings; 5/5 PF, DF, EHL on left. Sensation to light touch intact throughout LLE. Calf soft, compressible, nontender. Aquacel dressing CDI. Objective Labs 02/25/24 05:05 02/25/24 05:05 Labs: Laboratory Results - last 24 hr 02/25/24 05:05 WBC 7.9 RBC 3.78 L Hgb 11.6 L Hct 33.6 L MCV 89.1 MCH 30.6 MCHC 34.4 RDW 12.5 Plt Count 154 Neut % (Auto) 77.8 H Lymph % (Auto) 10.9 L [place] % (Auto) 10.8 Eos % (Auto) 0.1 L Baso % (Auto) 0.4 Neut # (Auto) 6200 Lymph # (Auto) 900 L [place] # (Auto) 900 Eos # (Auto) 0 Baso # (Auto) 0 Sodium 137 Potassium 3.7 Chloride 108 H Carbon Dioxide 28 BUN 9 Creatinine 0.44 L Estimated GFR > 60 BUN/Creatinine Ratio 20.5 Glucose 114 H Calcium 8.2 L PFSH Social History marital status: household members: none occupational status: employed 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 Smoking Status: Former smoker alcohol intake: current additional social history: Lives independently in [place] Assessment & Plan Post-op Assessment and plan (1) Status post hip hemiarthroplasty: Assessment and Plan narrative: 1) WBAT to left leg, posterior hip precautions x 6 weeks. SNF rehab vs outpt PT. 2) Incision closed w/ absorbable suture and skin glue. Pt may shower with dressing in place. Dressing can be removed in 10-14 days; if it becomes saturated prior to that, it can be removed and replaced with clean, dry gauze. No bathing or otherwise soaking incision until completely healed. 3) Pain control per hospitalist service. Pt has h/o [place] but denies gastric ulcers; NSAIDs should be ok. 4) VTE prophylaxis per hospitalist service. Currently receiving enoxaparin. If she is mobilizing w/ walker prior to discharge, she can be discharged w/ ASA 81 mg BID x 6 weeks. Otherwise, she can remain on enoxaparin x 4 weeks. 5) F/u w/ Dr Bowman or local orthopedic surgeon in 6 weeks for repeat imaging and symptom check. Postoperative Procedures: Procedures Operation Date: 02/24/24 08:30 Actual Procedure Side Surgeon p LEFT HEMIARTHROPLASTY Left Geno Bowman MD Postoperative day: 1 Quality VTE Deep Vein Thrombosis/Pulmonary Embolism Present on Admission: No
[2024-02-25] MEDS: ACETAMINOPHEN 325 MG TABLET 650 MG PO (09:05)
[2024-02-25] MEDS: SODIUM CHLORIDE 0.9% FLUSH 10 ML IV ×2 (09:06→21:29)
[2024-02-25] MEDS: ENOXAPARIN 40 MG/0.4 ML SYRINGE SUBCUT (09:06)
[2024-02-25] MEDS: DOCUSATE 100 MG CAPSULE PO ×2 (09:06→21:29)
--- NOTE | 2024-02-25 09:13 | PT.IIE ---
Current Diagnoses Age-related osteoporosis with current pathological fracture, left femur, initial encounter for fracture (02/23/24) Fracture of unspecified part of neck of left femur, initial encounter for closed fracture (02/23/24) Presence of unspecified artificial hip joint (02/23/24) Surgery Performed Operation Date: 02/24/24 08:30 Actual Procedures p LEFT HEMIARTHROPLASTY(Left) - Geno Bowman MD Physical Therapy Inpatient Evaluation/Re-Eval M1 PT/OT-IP Prior Functional Status Start: 02/24/24 13:26 Freq: NEEDED Status: Active Protocol: Document 02/25/24 08:20 MB (Rec: 02/25/24 09:13 MB [id number]) Medical Review Prior Functional Status Medical History Reviewed Yes Diet/Fluid Consistency Regular Communication WNLs Mobility and Gait I, used SPC to car in winter d /t ice in [place] Activities of Daily Living and IADL's I Social History Household Members none Living Arrangements House Number of Floors (Floors) One Floor Number of Stairs To Enter/Railing? 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 Unsure disposition location d/ t pt lives in [place] and she was out visiting family when she fell and fractured hip M2 PT-IP Current Condition Start: 02/24/24 13:26 Freq: NEEDED Status: Active Protocol: Document 02/25/24 08:20 MB (Rec: 02/25/24 09:13 MB [id number]) Physical Therapy Current Condition Current Condition Evaluation Date 02/25/24 Treatment Diagnosis Fall, comminuted left femoral neck fx s/p hemiarthroplasty M3 PT-IP Subjective Start: 02/24/24 13:26 Freq: NEEDED Status: Active Protocol: Document 02/25/24 08:20 MB (Rec: 02/25/24 09:13 MB [id number]) Subjective Physical Therapy Visit Type Type Initial Evaluation Visit Start Time 08:20 Visit Stop Time 08:53 Number of APPRENTICE COOK Visits 0 Physical Therapy Visit Comments Patient Comments Pt is hyperverbal and it is difficult to get her to directly answer a question and to stay on task. At rest, she reports only soreness in her left thigh. Therapy Pain Assessment Pain When Pain Assessed During Mobility Pain Present Pain Present Pain Reported Location left hip Intensity 4 Scale Used Numeric (0 - 10) Pain Behaviors Calling Out,Guarding,Holding Area,Moaning Pain Management Techniques Distraction,Elevation, Modification of Treatment,Re- positioning,Timing of Activity with Medications M4 PT-IP Mobility and Gait Start: 02/24/24 13:26 Freq: NEEDED Status: Active Protocol: Document 02/25/24 08:20 MB (Rec: 02/25/24 09:13 MB [id number]) PT-Bed Mobility Assessment Supine to Sit Supine to Sit Standby Assistance,1 Person Assistance,Head of Bed Elevated,Bedrails Scooting Scooting to Edge of Bed Standby Assistance Scooting Up and Down in Bed Standby Assistance PT-Transfer Assessment Sit to and From Stand Sit to and from Stand Moderate Assistance,1 Person Assistance,Use of Upper Extremities Equipment Transfer Assistive Device Gait Belt,Front Wheeled Walker Orthotic/Prosthetic Devices or Brace: No Transfers Transfer Destination Chair Transfer Technique Stepping Transfer Ability Level of Assist Maximum Assistance,1 Person Assistance,Use of Upper Extremities Comments Mobility Comments Pt is hyperverbal and a mouth breather and frequently gets out of breath and requires ongoing PT cues to close mouth and breathe through her nose. O2 sats on RA remain in the 90s. She is orthostatic with BP and HR in LUE: HOB up/hook lyin positioning in the bed: 130/70, 74; sitting EOB; 104/ 50, 76; standing 88/44, 74. Pt has no light-headedness with moving to sitting EOB and she sits there several minutes before standing. Close to chair and so stepping to chair and she does report a little light-headedness with being up on feet. Gait Assessment Gait Gait Assistance Required: Maximum Assistance,1 Person Assist Distance (Feet) 2 Able to Maintain Weight Bearing Status Yes During Gait Assistive Devices Assistive Device Gait Belt,Front Wheeled Walker Orthotic/Prosthetic Devices or Brace: No Gait Deviations General Gait Pattern Antalgic,Decreased Stride Length,Decreased Feet Clearance,Flexed Trunk,Step-to Gait,Wide Based Gait Factors Limiting Gait Function Factors Limiting Gait Function Decreased Activity Tolerance, Decreased Strength,Difficulty Following Directions, Incoordination,Limited Range of Motion,Pain,Poor Balance, Poor Safety Awareness Comments Gait Comments Pt has poor attention to task with PT cueing her walker, then left foot and then right foot and PT must assist pt in moving the walker and keeping her balance, especially with retropulsion PT-Balance Assessment Sitting Balance and Reactions Static Sitting Balance Ability Fair Dynamic Sitting Balance Ability Fair Standing Balance and Reactions Static Standing Balance Ability Fair Dynamic Standing Balance Ability Poor Device Used RW M5 PT-IP Objective Assessments Start: 02/24/24 13:26 Freq: NEEDED Status: Active Protocol: Document 02/25/24 08:20 MB (Rec: 02/25/24 09:13 MB [id number]) Orientation Orientation/Cognition Level of Alertness Alert Orientation Name,Age,Birthday,Month,Date, Year,Day of Week,Place, Situation Language Function Ability No Deficits Noted Safety Awareness Decreased Safety Awareness Memory Description No Deficits Noted Gross Range of Motion Upper Extremity ROM Impairments Defer to OT Lower Extremity ROM Assessment Left Impaired Strength Lower Extremity Strength Assessment Left Impaired Hip Deferred post-op Knee Deferred post-op Ankle Functional Sensation Assessment Comments Sensation Comments PT attempts to get more information from pt about reports of old right leg weakness and paresthesias and about her sensation in left leg but she does not clearly answer questions and is occ difficult to re-direct once talking M6 PT-IP Treatment Start: 02/24/24 13:26 Freq: NEEDED Status: Active Protocol: Document 02/25/24 08:20 MB (Rec: 02/25/24 09:13 MB [id number]) Physical Therapy Treatment Exercises Exercises Ankle Pumps,Heel Slides Education Education Provided Precautions,Weight Bearing Status,Safety Other Treatments Other Treatment Performed PT demonstrates left posterior hip precautions and provides handout and PT also demonstrates the difference between HS and AP compared to hip precautions when pt twice indicates that she cannot tell the difference between them M7 PT-IP Assessment and Plan Start: 02/24/24 13:26 Freq: NEEDED Status: Active Protocol: Document 02/25/24 08:20 MB (Rec: 02/25/24 09:13 MB [id number]) PT Summary Assessment and Plan Potential Rehabilitation Potential Good Status of Condition at Evaluation Evolving Summary Impairments Pain,ROM,Strength,Balance, Coordination,Sensation,Bed Mobility,Transfers,Gait, Activity Tolerance Progress Towards Goals Slow Progress due to Activity Tolerance Assessment Summary Pt is a pleasant and hyperverbal 88 y/o female who presents with left thigh and hip pain with mobility, weakness, poor bed mobility, balance, transfers and gait. Pt does not always answer all questions directly and PT attempts to interject when confusion observed about hip precautions vs APs and HS and when redirecting to stop talking so that she can slow her breathing and breathe through her nose. Pt is severely orthostatic today and symptomatic once on her feet. PT attempts to educate pt that she will need more help at d/c than her family can give at this time and she begins to talk about her OPPT private practice therapist in [place]. Pt has decreased insight to current needs. Recommend SNF at d/c. Goals Bed Mobility Goal Independent Transfer Goal Independent,Front Wheeled Walker Gait Goal Independent,Front Wheel Walker Gait Distance 75 Other Goals Pt will ascend and descend 2 steps with LRAD to allow safe home entry. Days to Meet Goals 5 Frequency of Treatment Frequency Of Treatment Twice a Day Treatment Plan Physical Therapy Treatment Plan Bed Mobility Training,Transfer Training,Gait Training, Therapeutic Exercise,Balance Retraining,Post Op Education, Discharge Planning,Hot or Cold Pack,Neuromuscular Re-ed, Coordination Retraining,Manual Therapy Other Recommendations and Next Treatment Review posterior hip Focus precautions, check orthostatics and progress mobility Precautions Posterior Hip Precautions No Hip Flexion > 90 degrees,No Hip Internal Rotation,No Hip Adduction Weight Bearing Status Weight Bearing Status Weight Bear as Tolerated Recommendations To Nursing Amount of Assist Needed 2 Person Assist Discharge Recommendations PT Discharge Recommendations SNF Rehab Transportation Needs at Discharge Private Vehicle,Wheelchair/ Cabulance
--- NOTE | 2024-02-25 10:59 | P.PN_ITS ---
Subjective Subjective Interval history: Patient having no pain. Just soreness in L thigh when getting up. Hasn't had BM since 02/22 but is passing gas. Exam Vital Signs (past 8 hours): - 02/25/24 07:00 02/25/24 07:33 Temperature 99.0 F Pulse Rate 66 Respiratory Rate 18 Blood Pressure 116/68 Pulse Oximetry 95 95 Oxygen Delivery Method Nasal Cannula Oxygen Flow Rate 0 1 Fraction of Inspired Oxygen 24 Fraction of Inspired Oxygen 24 SaO2/FiO2 Ratio 395 Oxygen Delivery Method Nasal Cannula Oxygen Flow Rate 1 Narrative Exam Narrative: NAD, alert and oriented. Fluent speech. Lungs are clear, normal rate and effort. Heart is regular, 2/6 systolic murmur, no gallop or rub. Abdomen is soft, non distended. Extremities are free of edema. Good symmetric pedal pulses. Objective Labs 02/25/24 05:05 02/25/24 05:05 Labs: Laboratory Results - last 24 hr 02/25/24 05:05 WBC 7.9 RBC 3.78 L Hgb 11.6 L Hct 33.6 L MCV 89.1 MCH 30.6 MCHC 34.4 RDW 12.5 Plt Count 154 Neut % (Auto) 77.8 H Lymph % (Auto) 10.9 L [place] % (Auto) 10.8 Eos % (Auto) 0.1 L Baso % (Auto) 0.4 Neut # (Auto) 6200 Lymph # (Auto) 900 L [place] # (Auto) 900 Eos # (Auto) 0 Baso # (Auto) 0 Sodium 137 Potassium 3.7 Chloride 108 H Carbon Dioxide 28 BUN 9 Creatinine 0.44 L Estimated GFR > 60 BUN/Creatinine Ratio 20.5 Glucose 114 H Calcium 8.2 L PFSH Social History marital status: household members: none occupational status: employed 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 Smoking Status: Former smoker alcohol intake: current additional social history: Lives independently in [place] Assessment & Plan Assessment & Plan narrative: 1. Left femoral neck fracture status post operative repair on February 23, present on admission and active. 2. Ground level fall, mechanical. Present on admission and active. 3. Chronic essential hypertension, present on admission and stable. 4. Systolic murmur, present on admission. 5. Orthostatic hypotension, not present on admission. Having 40 pt drop in systolic when going from lying to standing. Patient denies dizziness however. Plan: -holding verapemil due to orthostasis, give 500cc bolus, unclear if systolic murmur is contributing (aortic stenosis) but if orthostasis not improving with get echo -check q6h orthostatics -stopped morphine IV as patient not in pain -advance activity, will need SNF -DVT prophylaxis. -Laxatives PRN to prevent constipation Full code. She lives alone in [place]. She was recently . Dispo: SNF in 1-2 days Quality VTE Deep Vein Thrombosis/Pulmonary Embolism Present on Admission: No
[2024-02-25] MEDS: SODIUM CHLORIDE 0.9% 500 ML IV (11:20)
--- NOTE | 2024-02-25 11:47 | CM.DPNOTE ---
Addendum entered by JOYCE Kothari 02/25/24 15:09: ADD: Patient has [employer] as primary insurance, [facility] as secondary. [facility] does not take [employer], only [facility]. Met again with patient and her friend Fariba. Patient requests [facility]. Reviewed referral with Evie. JN Lui, has emailed this referral for Evie's review. Original Note: DCP Cont Met w/patient to review DCP options; PT recommending SNF, patient agrees this would be best. Reviewed [facility] contracted SNFs in this region. Patient requests referral to [facility]. JN Lui, kindly agreed to complete this referral. Level 1 PASRR completed. LUIS A
--- NOTE | 2024-02-25 14:39 | OT.IP.EVAL ---
Current Diagnoses Age-related osteoporosis with current pathological fracture, left femur, initial encounter for fracture (02/23/24) Fracture of unspecified part of neck of left femur, initial encounter for closed fracture (02/23/24) Presence of unspecified artificial hip joint (02/23/24) Surgery Performed Operation Date: 02/24/24 08:30 Actual Procedures p LEFT HEMIARTHROPLASTY(Left) - Geno Bowman MD Occupational Therapy Inpatient Evaluation/Re-Eval M1 PT/OT-IP Prior Functional Status Start: 02/24/24 13:26 Freq: NEEDED Status: Active Protocol: Document 02/25/24 15:33 CGR (Rec: 02/25/24 15:42 CGR [id number]) Medical Review Prior Functional Status Medical History Reviewed Yes Diet/Fluid Consistency Regular Communication Pt is an effective verbal communicator. Mobility and Gait I, used SPC to car in winter d /t ice in [place] Activities of Daily Living and IADL's Pt was IND for all ADLs and IADLs. 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 Social History Household Members none Living Arrangements House Number of Floors (Floors) One Floor Number of Stairs To Enter/Railing? 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 Unsure disposition location d/ t pt lives in [place] and she was out visiting family when she fell and fractured hip M2 OT-IP Current Condition Start: 02/25/24 15:21 Freq: Status: Active Protocol: Document 02/25/24 15:33 CGR (Rec: 02/25/24 15:42 CGR [id number]) Occupational Therapy Current Condition Current Condition Evaluation Date 02/25/24 Treatment Diagnosis GLF, posterior L hip hemiarthroplasty Diagnosis Onset Date 02/23/24 Post Operative Precautions Posterior Hip Precautions No Hip Flexion > 90 degrees,No Hip Internal Rotation,No Hip Adduction Weight Bearing Status Weight Bearing Status Weight Bear as Tolerated M3 OT- IP Subjective and Pain Start: 02/25/24 15:21 Freq: Status: Active Protocol: Document 02/25/24 15:33 CGR (Rec: 02/25/24 15:42 CGR [id number]) OT- Subjective Occupational Therapy Visit Type Type Initial Evaluation Visit Start Time 14:01 Visit Stop Time 14:39 Notes Pt's friend present throughout OT Pain Assessment Pain When Pain Assessed During Mobility Pain Present Pain Present Pain Reported Location left hip Scale Used did not rate Management Techniques Distraction,Modification of Treatment,Re-positioning M4 OT- IP ADL's Start: 02/25/24 15:21 Freq: Status: Active Protocol: Document 02/25/24 15:33 CGR (Rec: 02/25/24 15:42 CGR [id number]) OT [id number] General Evaluation Self-Feeding Ability Independent Areas Needing Assistance Drinking From Cup/Glass OT ADL-Grooming General Evaluation Grooming Ability Independent Areas Needing Assistance Face Washing Comments OT Grooming Comments seated in chair OT ADL-Oral Care Comments Oral Care Comments pt declined, states that she performed earlier today. OT ADL-Dressing Comments OT Dressing Comments not performed OT ADL-Toileting General Evaluation Toileting Ability Total Assistance Comments OT Toileting Comments pulliam OT ADL-Bathing Comments OT Bathing Comments not performed M5 OT- IP IADL's Start: 02/25/24 15:21 Freq: Status: Active Protocol: Document 02/25/24 15:33 CGR (Rec: 02/25/24 15:42 CGR [id number]) OT-Instrumental Activities of Daily Living Deficits IADL Deficits Identified No Deficits Home Safety Awareness Awareness of Need for Assistance at Home Good Awareness Ability to Problem Solve Emergency Able to Problem Solve Situations Medication Management Medication Management No Deficits Identified Money Management Money Management No Deficits Identified Meal Preparation Meal Preparation No Deficits Identified Lab Clerk Lab Clerk No Deficits Identified Driving Driving Comments 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 OT- IP Functional Cognition Start: 02/25/24 15:21 Freq: Status: Active Protocol: Document 02/25/24 15:33 CGR (Rec: 02/25/24 15:42 CGR [id number]) Cognitive Factors Limiting Selfcare Function Cognitive Ability Level of Alertness Alert Patient Orientation Name,Age,Birthday,Month,Date, Year,Day of Week,Place, Situation Attention Span Ability Capable of Focused Attention, Capable of Sustained Attention Ability to Follow Commands Able to Follow Multi-Step Commands OT- Vision and Hearing OT- Hearing Assessment OT- Hearing Assessment WFL OT- Vision Assessment Visual Acuity Glasses All The Time Visual Attentiveness WFL Occular Pursuits WFL Visual Convergence WFL M7 OT- IP Mobility and Balance Start: 02/25/24 15:21 Freq: Status: Active Protocol: Document 02/25/24 15:33 CGR (Rec: 02/25/24 15:42 CGR [id number]) OT-Transfer Assessment Sit to and From Stand Sit to and from Stand Minimal Assistance Transfers Transfer Ability Minimal Assistance Technique Transfer Destination Chair Transfer Technique Stand Step Pivot Devices Transfer Assistive Devices Gait Belt,Front Wheeled Walker Comments Mobility Comments Pt stood from chair a total of 3 times. OT- Gait Assessment Gait Gait Assistance Required: Minimum Assistance Assistive Devices Assistive Device Gait Belt,Front Wheeled Walker Comments Gait Ability Comments Pt ambulated in room from chair x2 ~12 ft each time. OT- Balance Assessment Sitting Balance and Reactions Static Sitting Balance Ability Good Dynamic Sitting Balance Ability Good M8 OT- IP Objective Assessments Start: 02/25/24 15:21 Freq: Status: Active Protocol: Document 02/25/24 15:33 CGR (Rec: 02/25/24 15:42 CGR [id number]) OT Gross Range of Motion Upper Extremity Range of Motion Assessment Within Functional Limits OT Strength Upper Extremity Strength Assessment Within Functional Limits Comments Strength Comments 4/5 OT- Coordination Assessment Upper Extremity Finger to Nose Test Within Functional Limits Finger Tapping Test Within Functional Limits OT-Muscle Tone Assessment Muscle Tone WNL Yes OT Sensation Assessment Edema Edema Absent M9 OT- IP Assessment and Plan Start: 02/25/24 15:21 Freq: Status: Active Protocol: Document 02/25/24 15:33 CGR (Rec: 02/25/24 15:42 CGR [id number]) OT Summary Assessment and Plan Potential Rehabilitation Potential Excellent Analytic Complexity at Evaluation Moderate Summary OT Impairments Pain,Balance,Functional Mobility,Grooming,Dressing, Toileting,Bathing,Toilet Transfers,Shower Transfers, Activity Tolerance Progress Towards Goals Slow Progress due to Pain Assessment Summary Pt presents as a moderate complexity evaluation s/p fall with L hip fx and underwent L hip hemiarthroplasty. Pt is doing well in today session with BP holding 121/71 sitting , 119/65 standing after 2 minutes. Pt was able to take steps in the room with min a. Pt needs max vc for hand placement and safety reminders but is progressing well. Pt is a good candidate for SNF. Goals Grooming Goal Independent Dressing Goal Independent,Bill Board Poster,Sock Aid Toileting Goal Independent Bathing Goal Independent Toilet Transfer Goal Independent Shower Transfer Goal Independent Days to Meet Goals 15 Frequency of Treatment Frequency Of Treatment Once a Day Treatment Plan OT Treatment Plan ADL Training,Functional Mobility,Patient/Family Education,Discharge Planning Other Treatment Recommendations and Next LB dressing, toileting at Treatment Focus toilet, aDLs standing at sink if BP continues to maintain. Discharge Recommendations OT Discharge Recommendations SNF Rehab Transportation Needs at Discharge Wheelchair/Cabulance
[2024-02-26] MEDS: ACETAMINOPHEN 325 MG TABLET 650 MG PO ×2 (00:08→08:51)
--- NOTE | 2024-02-26 01:05 | PC.NURSE ---
Patient is alert and oriented. Breath sounds CTA with RA sat of 94%. HRR. Was orthostatic again tonight when ortho's done with BP dropping from 113/48 lying to 96/51 sitting and 74/38 standing but had no complaints of dizziness or lightheadedness. Denied nausea. BT present and is passing flatus. Indwelling catheter is patent. Is able to move self in bed. Needing lots of staff assistance to get to sitting/standing position from bed and is needing 1-2 assists to get out of bed and to walk with walker; has chronic weakness/tingling in right LE and mild tingling of toes on left foot along with weakness related to hip surgery. Aquacel dressing to left hip is CDI. Did complain of 5/10 pain and was medicated with Tylenol at 0008 and ice pack applied and is currently asleep. Is wearing bilateral calf SCD's. Fall risk score is high and bed alarm is activated.
[2024-02-26 05:14] VITALS: BP 112/74; PULSE 80; RESP 16; TEMP 36.4; O2SAT 96
[2024-02-26 06:26] LABS: Add Manual Diff / Slide Review NO; Basophils Absolute Auto 100 /uL (0-100); Basophils Percent Auto 0.7 % (0-2); Eosinophils Absolute Auto 300 /uL (0-450); Hemoglobin 11.4 g/dL (12.0-16.0); Lymphocytes Absolute Auto 1400 /uL (1100-4500); Lymphocytes Percent Auto 17.1 % (25-40); Mean Corpuscular HGB Conc 34.5 % (30-36); Mean Corpuscular Hemoglobin 31.1 PG (26-34); Mean Corpuscular Volume 90.2 fL (80-100); Monocytes Absolute Auto 900 /uL (0-900); Monocytes Percent Auto 10.8 % (3-14); Neutrophils Absolute Auto 5500 /uL (1500-7000); Neutrophils Percent Auto 67.4 % (50-75); Platelet Count 153 X10^3/uL (150-400); Red Blood Cell Count 3.66 X10^6/uL (4.0-5.2); Red Cell Distribution Width 12.7 % (11.6-14.8); White Blood Cell Count 8.2 X10^3/uL (4.5-11.0)
[2024-02-26 06:39] LABS: BUN Creatinine Ratio 20.9 (6-22); Blood Urea Nitrogen 9 mg/dL (7-17); Calcium 7.9 mg/dL (8.4-10.2); Carbon Dioxide 29 mmol/L (22-32); Chloride 108 mmol/L (98-107); Estimated Glomerular Filt Rate > 60 mL/min (>60); Glucose 109 mg/dL (80-110); HEMOLYSIS < 15 (0-50); Potassium 3.8 mmol/L (3.4-5.1); Sodium 137 mmol/L (137-145)
[2024-02-26 07:00] VITALS: BP 111/50; BP 120/55; BP 124/63; PULSE 63; PULSE 73; PULSE 77
[2024-02-26] MEDS: DOCUSATE 100 MG CAPSULE PO ×2 (08:51→20:40)
[2024-02-26] MEDS: SODIUM CHLORIDE 0.9% FLUSH 10 ML IV ×2 (08:52→20:40)
[2024-02-26] MEDS: ENOXAPARIN 40 MG/0.4 ML SYRINGE SUBCUT (08:52)
[2024-02-26] MEDS: SODIUM CHLORIDE 0.9% 500 ML IV (09:17)
--- NOTE | 2024-02-26 09:21 | CM.DPC ---
DCP Cont. Reviewed EMR and team rounds for status updates. Met with pt at bedside to discuss the estimated out of pocket cost for her with her [employer] insurance, and what they expect for Medicare to cover. Pt was in agreement with the plan of moving forward with prior authorization. Called [facility] and spoke with Evie, requested for them to start the auth. She will notify this [employer] once she has a response.
[2024-02-26 10:12] VITALS: BP 124/63; PULSE 65; RESP 16; TEMP 36.7; O2SAT 94
--- NOTE | 2024-02-26 11:34 | PT.IPTN ---
Current Diagnoses Age-related osteoporosis with current pathological fracture, left femur, initial encounter for fracture (02/23/24) Fracture of unspecified part of neck of left femur, initial encounter for closed fracture (02/23/24) Presence of unspecified artificial hip joint (02/23/24) Surgery Performed Operation Date: 02/24/24 08:30 Actual Procedures p LEFT HEMIARTHROPLASTY(Left) - Geno Bowman MD Physical Therapy Treatment Note M2 PT-IP Current Condition Start: 02/24/24 13:26 Freq: NEEDED Status: Active Protocol: Document 02/25/24 08:20 MB (Rec: 02/25/24 09:13 MB [id number]) Physical Therapy Current Condition Current Condition Evaluation Date 02/25/24 Treatment Diagnosis Fall, comminuted left femoral neck fx s/p hemiarthroplasty M3 PT-IP Subjective Start: 02/24/24 13:26 Freq: NEEDED Status: Active Protocol: Document 02/26/24 12:39 TS (Rec: 02/26/24 12:45 TS [id number]) Subjective Physical Therapy Visit Type Type Treatment Note Visit Start Time 11:34 Visit Stop Time 12:04 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 Therapy Pain Assessment Pain When Pain Assessed During Mobility Pain Present Pain Present Pain Reported M4 PT-IP Mobility and Gait Start: 02/24/24 13:26 Freq: NEEDED Status: Active Protocol: Document 02/26/24 12:39 TS (Rec: 02/26/24 12:45 TS [id number]) PT-Transfer Assessment Sit to and From Stand Sit to and from Stand Contact Guard Assistance Equipment Transfer Assistive Device Gait Belt,Front Wheeled Walker Orthotic/Prosthetic Devices or Brace: No Comments Mobility Comments pt performed heel slides with belt assist, quad sets, glute sets and ankle pumps prior to mobility. STS from chair CGA, pt required cues for pushing from arms of chair. She ambulated with FWW ~30'CGA with slow step to gait, pt denied any lightheadedness. Pt required education on posterior hip precautions. Pt ambulated back to chair, pt was left in chair with all needs met. Gait Assessment Gait Gait Assistance Required: Contact Guard Assist Distance (Feet) 30 Able to Maintain Weight Bearing Status Yes During Gait Assistive Devices Assistive Device Gait Belt,Front Wheeled Walker Orthotic/Prosthetic Devices or Brace: No Gait Deviations General Gait Pattern Antalgic,Decreased Stride Length,Decreased Feet Clearance,Flexed Trunk,Step-to Gait,Wide Based Gait Factors Limiting Gait Function Factors Limiting Gait Function Decreased Activity Tolerance, Decreased Strength,Difficulty Following Directions, Incoordination,Limited Range of Motion,Pain,Poor Balance, Poor Safety Awareness Comments Gait Comments See mobility comments PT-Balance Assessment Sitting Balance and Reactions Static Sitting Balance Ability Good Dynamic Sitting Balance Ability Good Standing Balance and Reactions Static Standing Balance Ability Good Dynamic Standing Balance Ability Fair Device Used RW M5 PT-IP Objective Assessments Start: 02/24/24 13:26 Freq: NEEDED Status: Active Protocol: Document 02/25/24 08:20 MB (Rec: 02/25/24 09:13 MB [id number]) Orientation Orientation/Cognition Level of Alertness Alert Orientation Name,Age,Birthday,Month,Date, Year,Day of Week,Place, Situation Language Function Ability No Deficits Noted Safety Awareness Decreased Safety Awareness Memory Description No Deficits Noted Gross Range of Motion Upper Extremity ROM Impairments Defer to OT Lower Extremity ROM Assessment Left Impaired Strength Lower Extremity Strength Assessment Left Impaired Hip Deferred post-op Knee Deferred post-op Ankle Functional Sensation Assessment Comments Sensation Comments PT attempts to get more information from pt about reports of old right leg weakness and paresthesias and about her sensation in left leg but she does not clearly answer questions and is occ difficult to re-direct once talking M6 PT-IP Treatment Start: 02/24/24 13:26 Freq: NEEDED Status: Active Protocol: Document 02/26/24 12:39 TS (Rec: 02/26/24 12:45 [id number]) Physical Therapy Treatment Exercises Exercises Ankle Pumps,Gluteal Sets,Quad Sets,Heel Slides Education Education Provided Precautions,Weight Bearing Status,Safety M7 PT-IP Assessment and Plan Start: 02/24/24 13:26 Freq: NEEDED Status: Active Protocol: Document 02/26/24 12:39 TS (Rec: 02/26/24 12:45 [id number]) PT Summary Assessment and Plan Potential Rehabilitation Potential Good Summary Impairments Pain,ROM,Strength,Balance, Coordination,Sensation,Bed Mobility,Transfers,Gait, Activity Tolerance Progress Towards Goals Progressing Toward Goals Assessment Summary Sonia is progressing well with her mobility. She is CGA for STS with FWW and progressed her gait to ~30'CGA with FWW. She continues to deny any lightheadedness with mobility. She required education on her posterior hip precautions. PT is recommending SNF rehab. Goals Bed Mobility Goal Independent Transfer Goal Independent,Front Wheeled Walker Gait Goal Independent,Front Wheel Walker Gait Distance 75 Other Goals Pt will ascend and descend 2 steps with LRAD to allow safe home entry. Days to Meet Goals 5 Frequency of Treatment Frequency Of Treatment Twice a Day Treatment Plan Physical Therapy Treatment Plan Bed Mobility Training,Transfer Training,Gait Training, Therapeutic Exercise,Balance Retraining,Post Op Education, Discharge Planning,Hot or Cold Pack,Neuromuscular Re-ed, Coordination Retraining,Manual Therapy Other Recommendations and Next Treatment Review posterior hip Focus precautions, check orthostatics and progress mobility Precautions Posterior Hip Precautions No Hip Flexion > 90 degrees,No Hip Internal Rotation,No Hip Adduction Weight Bearing Status Weight Bearing Status Weight Bear as Tolerated Recommendations To Nursing Amount of Assist Needed 1 Person Assist Discharge Recommendations PT Discharge Recommendations SNF Rehab Transportation Needs at Discharge Private Vehicle,Wheelchair/ Cabulance
--- NOTE | 2024-02-26 14:28 | PM.PN.1 ---
Subjective Subjective Interval history: Patient orthostatics improved then worsened again last night with drop to 77 systolic when standing. This morning her orthostatics were negative after another 500cc bolus. She denies any symptoms. Is awaiting SNF. Exam Vital Signs (past 8 hours): - 02/26/24 07:00 02/26/24 10:12 Temperature 98.0 F Pulse Rate 65 Pulse Rate [Orthostatic Lying] 63 Pulse Rate [Orthostatic Sitting] 77 Pulse Rate [Orthostatic Standing] 73 Respiratory Rate 16 Blood Pressure 124/63 Blood Pressure [Orthostatic Lying] 124/63 Blood Pressure [Orthostatic Sitting] 120/55 L Blood Pressure [Orthostatic Standing] 111/50 L Pulse Oximetry 94 Oxygen Flow Rate 0 Fraction of Inspired Oxygen 24 SaO2/FiO2 Ratio 395 Oxygen Delivery Method Room Air Oxygen Flow Rate 0 Narrative Exam Narrative: NAD, alert and oriented. Fluent speech. Lungs are clear, normal rate and effort. Heart is regular, 2/6 systolic murmur, no gallop or rub. Abdomen is soft, non distended. Extremities are free of edema. Good symmetric pedal pulses. Objective Labs 02/26/24 05:11 02/26/24 05:11 Labs: Laboratory Results - last 24 hr 02/26/24 05:11 WBC 8.2 RBC 3.66 L Hgb 11.4 L Hct 33.0 L MCV 90.2 MCH 31.1 MCHC 34.5 RDW 12.7 Plt Count 153 Neut % (Auto) 67.4 Lymph % (Auto) 17.1 L [place] % (Auto) 10.8 Eos % (Auto) 4.0 Baso % (Auto) 0.7 Neut # (Auto) 5500 Lymph # (Auto) 1400 [place] # (Auto) 900 Eos # (Auto) 300 Baso # (Auto) 100 Sodium 137 Potassium 3.8 Chloride 108 H Carbon Dioxide 29 BUN 9 Creatinine 0.43 L Estimated GFR > 60 BUN/Creatinine Ratio 20.9 Glucose 109 Calcium 7.9 L [facility] Social History marital status: household members: none occupational status: employed 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 Smoking Status: Former smoker alcohol intake: current additional social history: Lives independently in [place] Assessment & Plan Assessment & Plan narrative: 1. Left femoral neck fracture status post operative repair on February 23, present on admission and active. 2. Ground level fall, mechanical. Present on admission and active. 3. Chronic essential hypertension, present on admission and stable. 4. Systolic murmur, present on admission. 5. Orthostatic hypotension, not present on admission. Having 40 pt drop in systolic when going from lying to standing. Patient denies dizziness however. Plan: -holding verapemil due to orthostasis, give 500cc bolus x2, unclear if systolic murmur is contributing (ie. aortic stenosis) but if orthostasis not improving will get echo -check qshift orthostatics -per PT will need SNF -DVT prophylaxis. -Laxatives PRN to prevent constipation Full code. She lives alone in [place]. She was recently . Dispo: SNF in 1-2 days [facility] Deep Vein Thrombosis/Pulmonary Embolism Present on Admission: No
--- NOTE | 2024-02-26 14:32 | PM.PNPO.1 ---
Subjective Subjective Date Patient Seen: 02/26/24 Time Patient Seen: 14:32 Interval history: Patient states pain is mild at rest. She still is having moderate pain with activity. She was able to work with physical therapy and walked to the door today. Denies any fever chills. No nausea or vomiting. Exam Vital Signs (past 8 hours): - 02/26/24 07:00 02/26/24 10:12 Temperature 98.0 F Pulse Rate 65 Pulse Rate [Orthostatic Lying] 63 Pulse Rate [Orthostatic Sitting] 77 Pulse Rate [Orthostatic Standing] 73 Respiratory Rate 16 Blood Pressure 124/63 Blood Pressure [Orthostatic Lying] 124/63 Blood Pressure [Orthostatic Sitting] 120/55 L Blood Pressure [Orthostatic Standing] 111/50 L Pulse Oximetry 94 Oxygen Flow Rate 0 Fraction of Inspired Oxygen 24 SaO2/FiO2 Ratio 395 Oxygen Delivery Method Room Air Oxygen Flow Rate 0 Narrative Exam Narrative: 88-year-old female sitting comfortably in bedside chair in no apparent distress. Left hip dressing is clean, dry and intact. Motor functions intact distal left lower extremity. Sensation grossly intact to light touch distal left lower extremity. Const General: cooperative and comfortable Nutritional Appearance: average body habitus Orientation: alert Resp Effort & Inspection: normal respiratory effort and able to speak in complete sentences Objective Labs 02/26/24 05:11 02/26/24 05:11 Labs: Laboratory Results - last 24 hr 02/26/24 05:11 WBC 8.2 RBC 3.66 L Hgb 11.4 L Hct 33.0 L MCV 90.2 MCH 31.1 MCHC 34.5 RDW 12.7 Plt Count 153 Neut % (Auto) 67.4 Lymph % (Auto) 17.1 L [place] % (Auto) 10.8 Eos % (Auto) 4.0 Baso % (Auto) 0.7 Neut # (Auto) 5500 Lymph # (Auto) 1400 [place] # (Auto) 900 Eos # (Auto) 300 Baso # (Auto) 100 Sodium 137 Potassium 3.8 Chloride 108 H Carbon Dioxide 29 BUN 9 Creatinine 0.43 L Estimated GFR > 60 BUN/Creatinine Ratio 20.9 Glucose 109 Calcium 7.9 L PFSH Social History marital status: household members: none occupational status: employed 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 Status: Former smoker alcohol intake: current additional social history: Lives independently in [place] Assessment & Plan Post-op Postoperative Procedures: Procedures Operation Date: 02/24/24 08:30 Actual Procedure Side Surgeon p LEFT HEMIARTHROPLASTY Left Geno Bowman MD Postoperative day: 2 Postoperative status narrative: Stable status post left hip hemiarthroplasty Postoperative plan narrative: Weightbearing as tolerated, posterior hip precautions x6 weeks Mobilize with physical therapy Lovenox 40 mg subQ daily postoperatively for DVT prophylaxis, however if patient is mobilizing well with a walker she can have the Lovenox discharged and aspirin 81 mg b.i.d. upon discharge. Patient may shower with Aquacel dressing in place Aquacel dressing can be removed around 2 weeks unless it gets saturated can be changed out as needed Follow up outpatient orthopedic clinic 6 weeks for repeat x-ray Disposition, pending alf facility placement [facility] Deep Vein Thrombosis/Pulmonary Embolism Present on Admission: No
--- NOTE | 2024-02-26 14:54 | PT.IPTN ---
Current Diagnoses Age-related osteoporosis with current pathological fracture, left femur, initial encounter for fracture (02/23/24) Fracture of unspecified part of neck of left femur, initial encounter for closed fracture (02/23/24) Presence of unspecified artificial hip joint (02/23/24) Surgery Performed Operation Date: 02/24/24 08:30 Actual Procedures p LEFT HEMIARTHROPLASTY(Left) - Geno Bowman MD Physical Therapy Treatment Note M2 PT-IP Current Condition Start: 02/24/24 13:26 Freq: NEEDED Status: Active Protocol: Document 02/25/24 08:20 MB (Rec: 02/25/24 09:13 MB [id number]) Physical Therapy Current Condition Current Condition Evaluation Date 02/25/24 Treatment Diagnosis Fall, comminuted left femoral neck fx s/p hemiarthroplasty M3 PT-IP Subjective Start: 02/24/24 13:26 Freq: NEEDED Status: Active Protocol: Document 02/26/24 15:18 TS (Rec: 02/26/24 15:31 TS [id number]) Subjective Physical Therapy Visit Type Type Treatment Note Visit Start Time 14:54 Visit Stop Time 15:17 Number of [employer]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 Therapy Pain Assessment Pain When Pain Assessed During Mobility Pain Present Pain Present Pain Reported M4 PT-IP Mobility and Gait Start: 02/24/24 13:26 Freq: NEEDED Status: Active Protocol: Document 02/26/24 15:18 TS (Rec: 02/26/24 15:31 TS [id number]) PT-Transfer Assessment Sit to and From Stand Sit to and from Stand Contact Guard Assistance Equipment Transfer Assistive Device Gait Belt,Front Wheeled Walker Orthotic/Prosthetic Devices or Brace: No Comments Mobility Comments pt performed ankle pumps, quad sets, glute sets and heel slides prior to mobility. STS from chair CGA with FWW, pt required cues for sequencing. She ambulated in room ~40'SBA with FWW and slow step to gait . She required cues for PLB, pt tends to be a mouth a breather. Stand to sit into chair SBA with cues for sequencing. Pt was left in chair, all needs met. Gait Assessment Gait Gait Assistance Required: Standby Assistance Distance (Feet) 40 Able to Maintain Weight Bearing Status Yes During Gait Assistive Devices Assistive Device Gait Belt,Front Wheeled Walker Orthotic/Prosthetic Devices or Brace: No Gait Deviations General Gait Pattern Antalgic,Decreased Stride Length,Decreased Feet Clearance,Flexed Trunk,Step-to Gait,Wide Based Gait Factors Limiting Gait Function Factors Limiting Gait Function Decreased Activity Tolerance, Decreased Strength,Difficulty Following Directions, Incoordination,Limited Range of Motion,Pain,Poor Balance, Poor Safety Awareness Comments Gait Comments See mobility comments PT-Balance Assessment Sitting Balance and Reactions Static Sitting Balance Ability Good Dynamic Sitting Balance Ability Good Standing Balance and Reactions Static Standing Balance Ability Good Dynamic Standing Balance Ability Fair Device Used RW M5 PT-IP Objective Assessments Start: 02/24/24 13:26 Freq: NEEDED Status: Active Protocol: Document 02/25/24 08:20 MB (Rec: 02/25/24 09:13 MB [id number]) Orientation Orientation/Cognition Level of Alertness Alert Orientation Name,Age,Birthday,Month,Date, Year,Day of Week,Place, Situation Language Function Ability No Deficits Noted Safety Awareness Decreased Safety Awareness Memory Description No Deficits Noted Gross Range of Motion Upper Extremity ROM Impairments Defer to OT Lower Extremity ROM Assessment Left Impaired Strength Lower Extremity Strength Assessment Left Impaired Hip Deferred post-op Knee Deferred post-op Ankle Functional Sensation Assessment Comments Sensation Comments PT attempts to get more information from pt about reports of old right leg weakness and paresthesias and about her sensation in left leg but she does not clearly answer questions and is occ difficult to re-direct once talking M6 PT-IP Treatment Start: 02/24/24 13:26 Freq: NEEDED Status: Active Protocol: Document 02/26/24 15:18 TS (Rec: 02/26/24 15:31 [id number]) Physical Therapy Treatment Exercises Exercises Ankle Pumps,Gluteal Sets,Quad Sets,Heel Slides Education Education Provided Precautions,Weight Bearing Status,Safety M7 PT-IP Assessment and Plan Start: 02/24/24 13:26 Freq: NEEDED Status: Active Protocol: Document 02/26/24 15:18 TS (Rec: 02/26/24 15:31 [id number]) PT Summary Assessment and Plan Potential Rehabilitation Potential Good Summary Impairments Pain,ROM,Strength,Balance, Coordination,Sensation,Bed Mobility,Transfers,Gait, Activity Tolerance Progress Towards Goals Progressing Toward Goals Assessment Summary Sonia continues to make progress with her mobility. She is CGA for STS with FWW and continues to require max cues for sequencing. She continues to ambulate short distances in room with use of FWW. She has a slow step to gait and with heavy UE on FWW. PT continues to recommend SNF at this time to progress functional mobility, activity tolerance and strength. Goals Bed Mobility Goal Independent Transfer Goal Independent,Front Wheeled Walker Gait Goal Independent,Front Wheel Walker Gait Distance 75 Other Goals Pt will ascend and descend 2 steps with LRAD to allow safe home entry. Days to Meet Goals 5 Frequency of Treatment Frequency Of Treatment Twice a Day Treatment Plan Physical Therapy Treatment Plan Bed Mobility Training,Transfer Training,Gait Training, Therapeutic Exercise,Balance Retraining,Post Op Education, Discharge Planning,Hot or Cold Pack,Neuromuscular Re-ed, Coordination Retraining,Manual Therapy Other Recommendations and Next Treatment Review posterior hip Focus precautions, check orthostatics and progress mobility Precautions Posterior Hip Precautions No Hip Flexion > 90 degrees,No Hip Internal Rotation,No Hip Adduction Weight Bearing Status Weight Bearing Status Weight Bear as Tolerated Recommendations To Nursing Amount of Assist Needed 1 Person Assist Discharge Recommendations PT Discharge Recommendations SNF Rehab Transportation Needs at Discharge Wheelchair/Cabulance
--- NOTE | 2024-02-26 16:30 | OT.IP.TRT ---
Current Diagnoses Age-related osteoporosis with current pathological fracture, left femur, initial encounter for fracture (02/23/24) Fracture of unspecified part of neck of left femur, initial encounter for closed fracture (02/23/24) Presence of unspecified artificial hip joint (02/23/24) Surgery Performed Operation Date: 02/24/24 08:30 Actual Procedures p LEFT HEMIARTHROPLASTY(Left) - Geno Bowman MD Occupational Therapy Treatment Note M2 OT-IP Current Condition Start: 02/25/24 15:21 Freq: Status: Active Protocol: Document 02/25/24 15:33 [facility] (Rec: 02/25/24 15:42 [facility]GR [id number]) Occupational Therapy Current Condition Current Condition Evaluation Date 02/25/24 Treatment Diagnosis GLF, posterior L hip hemiarthroplasty Diagnosis Onset Date 02/23/24 Post Operative Precautions Posterior Hip Precautions No Hip Flexion > 90 degrees,No Hip Internal Rotation,No Hip Adduction Weight Bearing Status Weight Bearing Status Weight Bear as Tolerated M3 OT- IP Subjective and Pain Start: 02/25/24 15:21 Freq: Status: Active Protocol: Document 02/26/24 16:53 [facility] (Rec: 02/26/24 16:58 [facility] [id number]) OT- Subjective Occupational Therapy Visit Type Type Treatment Note Visit Start Time 16:00 Visit Stop Time 16:30 Occupational Therapy Visit Comments Patient Comments Pt not wanting to get up as just finished using the bathroom earlier and agreed to go over hip precautions needs . Patient/Caregiver Goals TO get better and be able to go home. OT Pain Assessment Pain When Pain Assessed During Mobility Pain Present Pain Present Pain Reported M4 OT- IP ADL's Start: 02/25/24 15:21 Freq: Status: Active Protocol: Document 02/26/24 16:53 [facility] (Rec: 02/26/24 16:58 [facility] [id number]) OT WKW-Pymw-Xigugmi General Evaluation Self-Feeding Ability Independent OT ADL-Grooming Comments OT Grooming Comments Pt states did earlier. OT ADL-Oral Care Comments Oral Care Comments Not performed. OT ADL-Dressing Comments OT Dressing Comments Spoke of use of pulmonology technician and sock aid to assist for LB dressing needs. Pt states has a pulmonology technician but unsure if she still has the sock aid. OT ADL-Toileting Comments OT Toileting Comments Spoke at length of not to bend forwards to wipe and best to stand and wipe or use of bidet /toilet paper aid to best be able to follow her hip precautions. OT ADL-Bathing Comments OT Bathing Comments not performed M5 OT- IP IADL's Start: 02/25/24 15:21 Freq: Status: Active Protocol: Document 02/25/24 15:33 [facility] (Rec: 02/25/24 15:42 [facility]GR [id number]) OT-Instrumental Activities of Daily Living Deficits IADL Deficits Identified No Deficits Home Safety Awareness Awareness of Need for Assistance at Home Good Awareness Ability to Problem Solve Emergency Able to Problem Solve Situations Medication Management Medication Management No Deficits Identified Money Management Money Management No Deficits Identified Meal Preparation Meal Preparation No Deficits Identified Radiologist Radiologist No Deficits Identified 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 OT- IP Functional Cognition Start: 02/25/24 15:21 Freq: Status: Active Protocol: Document 02/26/24 16:53 [facility] (Rec: 02/26/24 16:58 [facility] [id number]) Cognitive Factors Limiting Selfcare Function Cognitive Ability Level of Alertness Alert Patient Orientation Name,Age,Birthday,Month,Date, Year,Day of Week,Place, Situation Attention Span Ability Capable of Focused Attention, Capable of Sustained Attention Ability to Follow Commands Able to Follow One Step Commands Memory Description Short Term Impaired Cognitive Comments Cognitive Assessment Comments Pt is a bit forgetful at times and forgets what she is trying to say. Pt able to recall her hip precautions and able to give pt booklet to go over her hip precautions needs. Pt would benefit from a formal cognitive assessment. M7 OT- IP Mobility and Balance Start: 02/25/24 15:21 Freq: Status: Active Protocol: Document 02/25/24 15:33 [facility] (Rec: 02/25/24 15:42 [facility] [id number]) OT-Transfer Assessment Sit to and From Stand Sit to and from Stand Minimal Assistance Transfers Transfer Ability Minimal Assistance Technique Transfer Destination Chair Transfer Technique Stand Step Pivot Devices Transfer Assistive Devices Gait Belt,Front Wheeled Walker Comments Mobility Comments Pt stood from chair a total of 3 times. OT- Gait Assessment Gait Gait Assistance Required: Minimum Assistance Assistive Devices Assistive Device Gait Belt,Front Wheeled Walker Comments Gait Ability Comments Pt ambulated in room from chair x2 ~12 ft each time. OT- Balance Assessment Sitting Balance and Reactions Static Sitting Balance Ability Good Dynamic Sitting Balance Ability Good M8 OT- IP Objective Assessments Start: 02/25/24 15:21 Freq: Status: Active Protocol: Document 02/25/24 15:33 [facility] (Rec: 02/25/24 15:42 [facility] [id number]) OT Gross Range of Motion Upper Extremity Range of Motion Assessment Within Functional Limits OT Strength Upper Extremity Strength Assessment Within Functional Limits Comments Strength Comments 4/5 OT- Coordination Assessment Upper Extremity Finger to Nose Test Within Functional Limits Finger Tapping Test Within Functional Limits OT-Muscle Tone Assessment Muscle Tone WNL Yes OT Sensation Assessment Edema Edema Absent M9 OT- IP Assessment and Plan Start: 02/25/24 15:21 Freq: Status: Active Protocol: Document 02/26/24 16:53 [facility] (Rec: 02/26/24 16:58 [facility] [id number]) OT Summary Assessment and Plan Potential Rehabilitation Potential Excellent Analytic Complexity at Evaluation Moderate Summary OT Impairments Pain,Balance,Functional Mobility,Grooming,Dressing, Toileting,Bathing,Toilet Transfers,Shower Transfers, Activity Tolerance Progress Towards Goals Slow Progress due to Pain,Slow Progress due to Cognition Assessment Summary Able to talk at length of her hip precautions needs and use of ADL equipment to be able to increase her independence with needs. Pt to go to skilled rehab prior to going home. Goals Grooming Goal Independent Dressing Goal Independent,Plate And Weld Inspector,Sock Aid Toileting Goal Independent Bathing Goal Independent Toilet Transfer Goal Independent Shower Transfer Goal Independent Days to Meet Goals 15 Frequency of Treatment Frequency Of Treatment Once a Day Treatment Plan OT Treatment Plan ADL Training,Functional Mobility,Patient/Family Education,Discharge Planning Other Treatment Recommendations and Next LB dressing, toileting at Treatment Focus toilet, aDLs standing at sink if BP continues to maintain. Discharge Recommendations OT Discharge Recommendations SNF Rehab Transportation Needs at Discharge Wheelchair/Cabulance
[2024-02-26 17:53] VITALS: BP 126/54; PULSE 65; RESP 18; TEMP 37.2; O2SAT 94
[2024-02-26 19:52] VITALS: BP 102/49; PULSE 70; RESP 19; TEMP 37.2; O2SAT 98
[2024-02-26 21:15] VITALS: BP 109/48; BP 87/45; BP 87/68; PULSE 61; PULSE 68
--- NOTE | 2024-02-26 23:25 | PC.NURSE ---
Patient orthostatic tonight. Denies dizziness or lightheadedness. When ortho's done BP 109/48 lying, BP 87/45 sitting, 87/[address] Pat ordered compression stockings, abdominal binder when out of bed, and midodrine to start in the morning.
[2024-02-27 04:15] VITALS: BP 116/61; PULSE 57; RESP 19; TEMP 36.9; O2SAT 93
[2024-02-27] MEDS: MIDODRINE HCL 5 MG TABLET PO (05:57)
--- NOTE | 2024-02-27 07:01 | PM.PNPO.1 ---
Subjective Subjective Date Patient Seen: 02/27/24 Time Patient Seen: 07:01 Interval history: Sonia is lying in bed, tired. Worked a little w/ PT yesterday. C/o pain when moving at hip, otherwise doing well. Per CM notes, it appears that she may remain in the area locally for rehab. Exam Vital Signs (past 8 hours): - 02/27/24 04:15 Temperature 98.5 F Pulse Rate 57 L Respiratory Rate 19 Blood Pressure 116/61 Pulse Oximetry 93 Oxygen Flow Rate 0 Fraction of Inspired Oxygen 24 SaO2/FiO2 Ratio 395 Oxygen Delivery Method Room Air Oxygen Flow Rate 0 Narrative Exam Narrative: 4/5 hip flexors, quadriceps, hamstrings; 5/5 DF, PF, EHL on left. Sensation to light touch intact throughout LLE. Calf soft, compressible, nontender. Aquacel CDI. 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 Smoking Status: Former smoker alcohol intake: current additional social history: Lives independently in [place] Assessment & Plan Post-op Assessment and plan (1) Status post hip hemiarthroplasty: Assessment and Plan narrative: 1) WBAT to left leg, posterior hip precautions x 6 weeks. 2) Incision closed w/ absorbable suture and skin glue. Pt may shower with dressing in place. Dressing can be removed in 10-12 days; if it becomes saturated prior to that, it can be removed and replaced with clean, dry gauze. No bathing or otherwise soaking incision until completely healed. 3) Pain control per hospitalist service. Pt has h/o [place] but denies gastric ulcers; NSAIDs should be ok. 4) VTE prophylaxis per hospitalist service. Currently receiving enoxaparin. If she is mobilizing w/ walker prior to discharge, she can be discharged w/ ASA 81 mg BID x 6 weeks. Otherwise, she can remain on enoxaparin x 4 weeks. 5) F/u w/ Dr Bowman or local orthopedic surgeon in 6 weeks for repeat imaging and symptom check. 6) Disposition per hospitalist/. Postoperative Procedures: Procedures Operation Date: 02/24/24 08:30 Actual Procedure Side Surgeon p LEFT HEMIARTHROPLASTY Left Geno Bowman MD Postoperative day: 3 Quality VTE Deep Vein Thrombosis/Pulmonary Embolism Present on Admission: No
--- NOTE | 2024-02-27 07:23 | P.PN_ITS ---
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 Smoking Status: Former smoker alcohol intake: current additional social history: Lives independently in [place] Assessment & Plan Post-op Postoperative Procedures: Procedures Operation Date: 02/24/24 08:30 Actual Procedure Side Surgeon p LEFT HEMIARTHROPLASTY Left Geno Bowman MD Quality VTE Deep Vein Thrombosis/Pulmonary Embolism Present on Admission: No
[2024-02-27 08:00] VITALS: BP 110/53; BP 98/60; PULSE 57; PULSE 61; PULSE 72; PULSE 76; RESP 16; TEMP 36.6; O2SAT 97
--- NOTE | 2024-02-27 08:30 | OT.IP.TRT ---
Current Diagnoses Age-related osteoporosis with current pathological fracture, left femur, initial encounter for fracture (02/23/24) Fracture of unspecified part of neck of left femur, initial encounter for closed fracture (02/23/24) Presence of unspecified artificial hip joint (02/23/24) Surgery Performed Operation Date: 02/24/24 08:30 Actual Procedures p LEFT HEMIARTHROPLASTY(Left) - Geno Bowman MD Occupational Therapy Treatment Note M2 OT-IP Current Condition Start: 02/25/24 15:21 Freq: Status: Active Protocol: Document 02/25/24 15:33 [facility] (Rec: 02/25/24 15:42 [facility]GR [id number]) Occupational Therapy Current Condition Current Condition Evaluation Date 02/25/24 Treatment Diagnosis GLF, posterior L hip hemiarthroplasty Diagnosis Onset Date 02/23/24 Post Operative Precautions Posterior Hip Precautions No Hip Flexion > 90 degrees,No Hip Internal Rotation,No Hip Adduction Weight Bearing Status Weight Bearing Status Weight Bear as Tolerated M3 OT- IP Subjective and Pain Start: 02/25/24 15:21 Freq: Status: Active Protocol: Document 02/27/24 09:23 [facility] (Rec: 02/27/24 09:28 [facility] [id number]) OT- Subjective Occupational Therapy Visit Type Type Treatment Note Visit Start Time 08:30 Visit Stop Time 08:43 Occupational Therapy Visit Comments Patient Comments Pt eating breakfast and agreed to talk to OT regarding hip precautions. Patient/Caregiver Goals TO get better. OT Pain Assessment Pain When Pain Assessed During Mobility Pain Present Pain Present Pain Reported Location left hip Intensity 5 Scale Used Numeric (0 - 10) M4 OT- IP ADL's Start: 02/25/24 15:21 Freq: Status: Active Protocol: Document 02/27/24 09:23 [facility] (Rec: 02/27/24 09:28 [facility] [id number]) OT [id number] General Evaluation Self-Feeding Ability Independent OT ADL-Grooming Comments OT Grooming Comments Not performed. OT ADL-Oral Care Comments Oral Care Comments Not performed. OT ADL-Dressing Comments OT Dressing Comments Reminded and educated pt on use of LB dressing equipment as pt forgetting that she is not suppose to cross her left leg in order to get dressed. OT ADL-Toileting Comments OT Toileting Comments Reiterated hip precautions for toileting needs. OT ADL-Bathing Comments OT Bathing Comments not performed M5 OT- IP IADL's Start: 02/25/24 15:21 Freq: Status: Active Protocol: Document 02/25/24 15:33 [facility] (Rec: 02/25/24 15:42 [facility]GR [id number]) OT-Instrumental Activities of Daily Living Deficits IADL Deficits Identified No Deficits Home Safety Awareness Awareness of Need for Assistance at Home Good Awareness Ability to Problem Solve Emergency Able to Problem Solve Situations Medication Management Medication Management No Deficits Identified Money Management Money Management No Deficits Identified Meal Preparation Meal Preparation No Deficits Identified Weed Sprayer Weed Sprayer No Deficits Identified 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 Functional Cognition Start: 02/25/24 15:21 Freq: Status: Active Protocol: Document 02/27/24 09:23 [facility] (Rec: 02/27/24 09:28 [facility] [id number]) Cognitive Factors Limiting Selfcare Function Cognitive Ability Level of Alertness Alert Patient Orientation Name,Age,Birthday,Month,Date, Year,Day of Week,Place, Situation Attention Span Ability Capable of Focused Attention, Capable of Sustained Attention Ability to Follow Commands Able to Follow One Step Commands Memory Description Short Term Impaired Safety Awareness Decreased Recall of Precautions,Decreased Ability to Apply Precautions Cognitive Comments Cognitive Assessment Comments Pt still not able to recall all her hip precautions and needing vc to help incorporate during all ADL and mobility needs. Pt admits to still feeling groggy from surgery. M8 OT- IP Objective Assessments Start: 02/25/24 15:21 Freq: Status: Active Protocol: Document 02/25/24 15:33 [facility] (Rec: 02/25/24 15:42 [facility]GR [id number]) OT Gross Range of Motion Upper Extremity Range of Motion Assessment Within Functional Limits OT Strength Upper Extremity Strength Assessment Within Functional Limits Comments Strength Comments 4/5 OT- Coordination Assessment Upper Extremity Finger to Nose Test Within Functional Limits Finger Tapping Test Within Functional Limits OT-Muscle Tone Assessment Muscle Tone WNL Yes OT Sensation Assessment Edema Edema Absent M9 OT- IP Assessment and Plan Start: 02/25/24 15:21 Freq: Status: Active Protocol: Document 02/27/24 09:23 [facility] (Rec: 02/27/24 09:28 [facility] [id number]) OT Summary Assessment and Plan Potential Rehabilitation Potential Good Analytic Complexity at Evaluation Moderate Summary OT Impairments Pain,Balance,Functional Mobility,Grooming,Dressing, Toileting,Bathing,Toilet Transfers,Shower Transfers, Activity Tolerance Progress Towards Goals Slow Progress due to Pain,Slow Progress due to Cognition Assessment Summary Pt looking to go to skilled rehab today. Pt will greatly benefit from continued practice and education regarding her hip precations for ADL and mobility needs. Goals Grooming Goal Independent Dressing Goal Independent,Service Technician Copier,Sock Aid Toileting Goal Independent Bathing Goal Independent Toilet Transfer Goal Independent Shower Transfer Goal Independent Days to Meet Goals 15 Frequency of Treatment Frequency Of Treatment Once a Day Treatment Plan OT Treatment Plan ADL Training,Functional Mobility,Patient/Family Education,Discharge Planning Other Treatment Recommendations and Next LB dressing, toileting at Treatment Focus toilet, aDLs standing at sink if BP continues to maintain. Discharge Recommendations OT Discharge Recommendations SNF Rehab Transportation Needs at Discharge Wheelchair/Cabulance
[2024-02-27] MEDS: DOCUSATE 100 MG CAPSULE PO (08:34)
[2024-02-27] MEDS: ACETAMINOPHEN 325 MG TABLET 650 MG PO (08:34)
[2024-02-27] MEDS: ENOXAPARIN 40 MG/0.4 ML SYRINGE SUBCUT (08:34)
--- NOTE | 2024-02-27 08:47 | PC.NURSE ---
Pt reports she hd a bm yesterday.
--- NOTE | 2024-02-27 09:28 | CM.DPC ---
DCP Cont. Reviewed EMR and team rounds for status updates. Pt has been medically cleared for d/c, [facility]- is sending medical transport for pt to be picked up at 11:15am. Team is aware. PASSAR and clinicals have been faxed to the facility. No further DCP needs are indicated at this time.
--- NOTE | 2024-02-27 13:12 | PC.NURSE ---
Transfer: Report called to [facility]. Grosson is the admitting nurse and was given report. Reviewed fall and hospital course. Skin condition, mobility, wound. She is from [place] and may transfer to a snf there. Dicussed f/u visits. Reviewed pt's hx of hypotension. Currently patient has had the same thing here. Systolic bp down to 80's when standing but she is asymptomatic. She is wearing her compression stockings and has her abd binder. Pain has been minimal and is only using acetominophen. She is being transported to [facility] van ride. They may call if they have further quastions.
--- NOTE | 2024-02-27 13:19 | P.DS_ITS ---
History of Present Illness History of Present Illness Chief complaint: GLF Narrative: The patient is an 88-year-old female with history of hypertension who presented with left hip patent following a ground level fall. The patient was from out of town and is visiting from [facility]. She slipped on a floor landing resulting in our injury. She denies any other injuries. CT scan confirmed a hip fracture, Orthopedics was consulted and we will do an operative repair on February 23. She denies other injuries during her fall. There is no syncopal component. She is in town for a surprise birthday democrat for her family member. The patient has enjoyed good health other than hypertension for which he takes 1 blood pressure pill. She is full resuscitation, confirmed today. She denies any chest pain history either at rest or with exertion. She also denies any exertional dyspnea, leg edema or orthopnea. Discharge Providers Provider Date of admission: 02/23/24 13:43 Discharge Date: 02/27/24 Consults: 02/23/24 13:42 Consult to Physician Stat Comment: Consulting Provider: Geno Bowman Reason for consultation: hip Has provider been notified: Yes 02/24/24 07:52 Consult to Anesthesiology Routine Comment: Consulting Provider: Anesthesiologist Reason for consultation: Regional block for post operative pain control Has provider been notified: No 02/24/24 12:19 Consult to Discharge Planning Routine Comment: Consult to Occupational Therapy Evaluate & Treat Comment: Physician Instructions: Evaluate and treat Consult to Physical Therapy Evaluate & Treat Comment: PHP L hip x 6 weeks Physician Instructions: post op [place] protocol Discharge provider: Dg Romero DO Summary Hospital Course Discharge Diagnosis: 1. Left femoral neck fracture status post operative repair on February 23, present on admission and active. 2. Ground level fall, mechanical. Present on admission and active. 3. Chronic essential hypertension, present on admission and stable. 4. Systolic murmur, present on admission. 5. Orthostatic hypotension, not present on admission. Having 40 pt drop in systolic when going from lying to standing. Patient denies dizziness however. Started midodrine. Hospital Course: Admitted for fall at home resulting in L hip fracture. Underwent operative repair with ortho. Had orthostatic hypotension following surgery so her home verapamil was held. Patient asymptomatic. Gave IV fluid boluses with only moderate improvement. Started midodrine TID to prevent ongoing orthostasis. Patient discharged to SNF for rehab and on 6 weeks of ASA BID for DVT prophylaxis. Exam Vital Signs (past 8 hours): - 02/27/24 07:00 02/27/24 08:00 02/27/24 08:00 Temperature 97.8 F Pulse Rate 61 Pulse Rate [Orthostatic Lying] 57 L Pulse Rate [Orthostatic Sitting] 76 Pulse Rate [Orthostatic Standing] 72 Respiratory Rate 16 Blood Pressure 110/53 L Blood Pressure [Orthostatic Lying] 110/53 L Blood Pressure [Orthostatic Sitting] 110/53 L Blood Pressure [Orthostatic Standing] 98/60 Pulse Oximetry 97 Oxygen Delivery Method Room Air Fraction of Inspired Oxygen 24 SaO2/FiO2 Ratio 395 Oxygen Delivery Method Room Air Oxygen Flow Rate 0 Narrative Exam Narrative: NAD, alert and oriented. Fluent speech. Lungs are clear, normal rate and effort. Heart is regular, 2/6 systolic murmur, no gallop or rub. Abdomen is soft, non distended. Extremities are free of edema. Good symmetric pedal pulses. 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 Smoking Status: Former smoker alcohol intake: current additional social history: Lives independently in [place] Discharge Plan Discharge Plan Patient Disposition: SNF Nursing Discharge Comment: Remove dressing in 2 weeks. Is to be seen in 6 weeks at the office or if she chooses to go home she may follow up with an orthopedic doctor there. The abdominal binder, compression stockings are for her hypotension. She is to wear the binder at all times when she is up. She is also on Midodrine for this as well. She has been asymptomatic with the hypotension. Discharge orders & Medications Prescriptions: New midodrine 5 mg Tablet 5 mg PO 0600,1200,1800 Qty: 30 0RF aspirin 81 mg tablet,delayed release (DR/EC) 81 mg PO BID 42 Days Qty: 84 0RF Discontinued verapamil 240 mg tablet extended release 240 mg PO DAILY Follow up/Referrals: Geno Bowman MD [Physician] - 6 Weeks (F/u w/ any RN/provider in 2 weeks for dressing removal/wound check; there are no sutures or nitza that need to be removed. F/u in 6 weeks w/ Dr Bowman or local orthopedic surgeon for repeat imaging and symptom check.) Diet/Activity/Treatments Activity: Weightbearing as tolerated. Posterior hip precautions x 6 weeks. Cold/Heat Therapy: Ice to hip as needed for pain. Skin/Wound/Dressing Care Dressing: May shower with dressing in place. Leave dressing on for 10-12 days; no bathing or otherwise soaking incision until completely healed. If dressing becomes saturated inside earlier than 10-14 days, may remove and replace with clean, dry gauze. Special Rehabilitation Services Reason for rehabilitation: Post-operative therapy Rehab type: Physical therapy and Occupational therapy Visit Report/Discharge Packet Instructions: DI for Hip Replacement, DI for Constipation, How to Prevent Falls Stand Alone Forms: Patient Portal/API, Stroke Signs & Symptoms Quality VTE Deep Vein Thrombosis/Pulmonary Embolism Present on Admission: No
== END 2024-02-27 11:46 | DRG 522 ==
LOC: ED 13:43 → AC 13:43
PROVIDERS: Orthopaedic Surgery Foot and Ankle Surgery; Admitting Provider Hospitalist; Emergency Provider Emergency Medicine; Referring Provider Emergency Medicine; Visit Provider Hospitalist
PROC: 0SRB0JZ Replacement of Left Hip Joint with Synthetic Substitute, Open Approach (ICD-10-PCS; CPT 27130; principal; 2024-02-24 08:30)
DX: M80.852A Other osteoporosis with current pathological fracture, left femur, initial encounter for fracture (principal); I95.1 Orthostatic hypotension; I10 Essential (primary) hypertension; R01.1 Cardiac murmur, unspecified; Z87.891 Personal history of nicotine dependence
CPT/HCPCS: 36415; 72170; 72192; 73502; 80048; 80053; 85025; 93005; 94762; 96374; 97110; 97161; 97166; 97530; 97535; 99284; C1776; J0136; J0171; J0330; J0690; J1100; J1644; J1650; J2270; J2405; J2704; J3010